=== PATIENT | male | born 1975 | race Caucasian/White ===

== ENCOUNTER 2020-10-01 13:14 | Emergency (ER) | payer OTHER, SELFPAY ==
[2020-10-01 13:22] VITALS: BP 116/70; PULSE 91; RESP 20; TEMP 37; O2SAT 98
--- NOTE | 2020-10-01 13:24 | ED.SKABFB ---
HPI - Skin/Abscess/Foreign Bdy General Chief complaint: Skin/Abscess/Foreign Body Stated complaint: Painful knot on left harm, swelling, redness Time Seen by Provider: 10/01/20 13:24 Source: patient and RN notes reviewed History of Present Illness HPI narrative: Patient is a 45-year-old male who presents the urgent care with complaints of a raised red and painful knot to the left forearm. Patient states has been there for approximately 1 week after he was outside working in the yard. Patient states he may have gotten bitten by something . Reports of some intermittent fevers but denies any nausea, vomiting or drainage from the area. Patient has not taken anything [id number] for his pain or for cleansing of the area. No other acute complaints. No acute distress noted. Patient aware of the plan of care. Some parts of this dictation were generated by voice recognition software and may contain typographical and/or grammatical inaccuracies. Related Data Allergies Allergy/AdvReac Type Severity Reaction Status Date / Time No Known Allergies Allergy Verified 10/01/20 13:33 Review of Systems Review of Systems: Narrative: CONSTITUTIONAL: Denies fever, chills, or sweats. EYES: Denies visual changes, redness, or discharge. ENT: Denies rhinorrhea, congestion, sore throat, or otalgia. CARDIOVASCULAR: Denies chest pain, palpitations, or edema. RESPIRATORY: Denies cough or dyspnea. GASTROINTESTINAL: Denies abdominal pain, nausea, vomiting, or diarrhea. GENITOURINARY: Denies dysuria or hematuria. SKIN: Reports of a painful red knot to the left forearm MUSCULOSKELETAL: Denies back pain, joint pain, or myalgia. NEUROLOGIC: Denies headache, numbness, or weakness. All other systems reviewed are negative, except as documented in HPI. [facility] Past Medical History Medical History (Updated 10/01/20 @ 13:44 by CARLOS Handley) Anxiety and depression Asthmatic bronchitis COPD (chronic obstructive pulmonary disease) Diabetes Fracture of left foot Fracture of right foot Hyperlipemia Hypertension Myocardial infarction Social History Social History (Updated 04/21/19 @ 14:33 by Tati Calderon NP) Smoking packs per day: 2 Smoking cigarettes per day: 40.0 Years smoked: 22 Smoking pack-years: 44.00 Smoking status: Current every day smoker Gender identity (if verbalized by the patient): Male Comments At the time of my signature, I reviewed and agree with the nursing past medical, surgical, social, and family history. There is no relevant family history pertinent to the patient complaint. Exam Narrative: Exam Narrative: GENERAL: This is a well-nourished, well-developed patient, in no apparent distress. HEAD: normocephalic, atraumatic. EYES: PERRL. Sclera clear/white. Vision is grossly intact. EARS: External ears normal NOSE: External nose normal with no obvious nasal discharge, nares without redness, no rhinorrhea. THROAT: Mucous membranes moist NECK: Neck supple CARDIOVASCULAR: Regular rate and rhythm without murmurs, gallops, or rubs. RESPIRATORY: Clear to auscultation. Breath sounds equal bilaterally. No wheezes, rales, or rhonchi. SKIN: 2 x 2 centimeter raised erythemic tender folliculitis noted to the left forearm with pinpoint center, without drainage. NEURO: awake, alert, and oriented to person, place and time. There were no obvious focal neurologic abnormalities. EXTREMITIES: No clubbing, cyanosis, or edema. Course Vital Signs Vital signs: Vital Signs Temperature 98.6 F 10/01/20 13:22 Pulse Rate 91 10/01/20 13:22 Respiratory Rate 20 10/01/20 13:22 Blood Pressure 116/70 10/01/20 13:22 Pulse Oximetry 98 10/01/20 13:22 Temperature 98.6 F 10/01/20 13:22 Pulse Rate 91 10/01/20 13:22 Respiratory Rate 20 10/01/20 13:22 Blood Pressure 116/70 10/01/20 13:22 Pulse Oximetry 98 10/01/20 13:22 Reviewed MDM - Skin/Abscess/Foreign Bdy MDM Narrative Medical decision making n
== END 2020-10-01 13:58 | disposition home or self-care (01) ==
PROVIDERS: Emergency Provider Nurse Practitioner Family
DX: L73.9 Follicular disorder, unspecified (principal); F17.210 Nicotine dependence, cigarettes, uncomplicated; J44.9 Chronic obstructive pulmonary disease, unspecified; E11.9 Type 2 diabetes mellitus without complications; E78.5 Hyperlipidemia, unspecified; I10 Essential (primary) hypertension; I25.2 Old myocardial infarction
CPT/HCPCS: 99213; G0463

== ENCOUNTER 2021-03-11 14:01 | Emergency (ER) | payer OTHER, SELFPAY ==
[2021-03-11 14:06] VITALS: BP 114/61; PULSE 100; RESP 16; TEMP 37; O2SAT 97
[2021-03-11 14:22] VITALS: BP 114/61; PULSE 100; RESP 16; TEMP 37; O2SAT 97
--- NOTE | 2021-03-11 14:27 | ED.URI ---
HPI - URI/Sore Throat General Chief Complaint: Upper Respiratory Infection Stated Complaint: Cough/Fever/ No Taste Time Seen by Provider: 03/11/21 14:28 Source: patient and RN notes reviewed Mode of arrival: ambulatory Limitations: no limitations History of Present Illness MD elicited complaint: cough Related Data Home Medications Medication Instructions Recorded Confirmed amlodipine 5 mg PO DAILY 03/11/21 03/11/21 insulin glargine [Lantus U-100 50 unit SUBCUT BID 03/11/21 03/11/21 Insulin] lisinopril 10 mg PO DAILY 03/11/21 03/11/21 metformin 500 mg PO BID 03/11/21 03/11/21 simvastatin 20 mg PO DAILY 03/11/21 03/11/21 Allergies Allergy/AdvReac Type Severity Reaction Status Date / Time No Known Allergies Allergy Verified 03/11/21 14:20 Review of Systems Review of Systems: CONSTITUTIONAL: Denies malaise, chills, sweats, or fever. EYES: Denies visual changes, redness, or discharge. ENT: Reports rhinorrhea, congestion, sinus pain, otalgia and sore throat. CARDIOVASCULAR: Denies chest pain, palpitations, or edema. RESPIRATORY: Reports cough. Denies dyspnea. GASTROINTESTINAL: Denies abdominal pain, nausea, vomiting, diarrhea SKIN: Denies rash or itching. MUSCULOSKELETAL: Denies myalgia. NEUROLOGIC: Denies headache. All systems reviewed & are unremarkable except as noted in HPI and below PMFSH Past Medical History Medical History (Updated 10/02/20 @ 00:00 by Lauren Torres) Anxiety and depression Asthmatic bronchitis COPD (chronic obstructive pulmonary disease) Diabetes Fracture of left foot Fracture of right foot Hyperlipemia Hypertension Myocardial infarction Social History Social History (Updated 04/21/19 @ 14:33 by Tati Calderon NP) Smoking packs per day: 2 Smoking cigarettes per day: 40.0 Years smoked: 22 Smoking pack-years: 44.00 Smoking status: Current every day smoker Gender identity (if verbalized by the patient): Male Comments At time of signature, agree with nursing past medical, surgical, social and family history. There is no relevant family history pertinent to the presenting complaint Exam Narrative: GENERAL: Well-appearing, well-nourished, and in no acute distress. HEAD: Normocephalic EYES: PERRLA, conjunctivae clear ENT: Nares clear, turbinates edematous and erythematous, clear discharge. Mucous membranes moist. TM pearly woods with dull light reflex bilaterally; no tragal tenderness. Oropharynx erythematous without lesions. Tonsils enlarged and without exudate, no drooling, no hoarseness, no trismus, uvula midline. NECK: Supple. No lymphadenopathy CHEST: Clear to auscultation, breath sounds equal. No wheezing, rhonchi, rales, or stridor. No respiratory distress, speaks in full sentences. HEART: Regular rate and rhythm. No murmur heard. SKIN: Warm, dry, no rash. NEURO: Alert and oriented x3. PSYCH: Normal mood and affect Course Course Emergency Course: Patient is aware of diagnosis, understands and agrees to treatment plan. Anticipatory guidance given. Patient agrees to follow-up as directed and is aware of reasons to seek care at the emergency department. Portions of this record may have been created with voice recognition software Vital Signs Vital signs: Vital Signs Temperature 98.6 F 03/11/21 14:06 Pulse Rate 100 03/11/21 14:06 Respiratory Rate 16 03/11/21 14:06 Blood Pressure 114/61 03/11/21 14:06 Pulse Oximetry 97 03/11/21 14:06 Temperature 98.6 F 03/11/21 14:22 Pulse Rate 100 03/11/21 14:22 Respiratory Rate 16 03/11/21 14:22 Blood Pressure 114/61 03/11/21 14:22 Pulse Oximetry 97 03/11/21 14:22 Reviewed. MDM - URI/Sore Throat MDM Narrative Medical decision making narrative: Differential diagnosis considered: Estes virus, strep pharyngitis, allergic rhinitis, upper respiratory tract infection, sinusitis, rhinosinusitis, nasopharyngitis. viral pharyngitis, otitis media, otitis externa, pneumonia, bronchitis, v
--- NOTE | 2021-03-11 14:38 | ED.URI ---
HPI - URI/Sore Throat General Chief Complaint: Upper Respiratory Infection Stated Complaint: Cough/Fever/ No Taste Time Seen by Provider: 03/11/21 14:28 Source: patient and RN notes reviewed Mode of arrival: ambulatory Limitations: no limitations History of Present Illness HPI Narrative: 45-year-old male presents with concern for 1 week history cough, fever, body aches, chills, change in taste, sore throat. Reports history of COPD, heavy smoker, 2 to 3 packs/day. Has not been vaccinated for Covid. He denies any known sick contacts. Reports he has been taking [id number] medication without relief. MD elicited complaint: cough Related Data Home Medications Medication Instructions Recorded Confirmed amlodipine 5 mg PO DAILY 03/11/21 03/11/21 insulin glargine [Lantus U-100 50 unit SUBCUT BID 03/11/21 03/11/21 Insulin] lisinopril 10 mg PO DAILY 03/11/21 03/11/21 metformin 500 mg PO BID 03/11/21 03/11/21 simvastatin 20 mg PO DAILY 03/11/21 03/11/21 Allergies Allergy/AdvReac Type Severity Reaction Status Date / Time No Known Allergies Allergy Verified 03/11/21 14:20 Review of Systems Review of Systems: CONSTITUTIONAL: Reports malaise, fever, fatigue. Denies chills, sweats EYES: Denies visual changes, redness, or discharge. ENT: Reports rhinorrhea, congestion, and sore throat. Denies sinus pain, otalgia CARDIOVASCULAR: Denies chest pain, palpitations, or edema. RESPIRATORY: Reports cough, chest congestion. Denies dyspnea. GASTROINTESTINAL: Denies abdominal pain, nausea, vomiting, diarrhea SKIN: Denies rash or itching. MUSCULOSKELETAL: Reports myalgia. NEUROLOGIC: Reports headache. [facility] Past Medical History Medical History (Updated 03/11/21 @ 14:44 by Elana Hu NP) Anxiety and depression Asthmatic bronchitis COPD (chronic obstructive pulmonary disease) Diabetes Fracture of left foot Fracture of right foot Hyperlipemia Hypertension Myocardial infarction Social History Social History (Updated 04/21/19 @ 14:33 by Tati Calderon NP) Smoking packs per day: 2 Smoking cigarettes per day: 40.0 Years smoked: 22 Smoking pack-years: 44.00 Smoking status: Current every day smoker Gender identity (if verbalized by the patient): Male Exam Narrative: GENERAL: Well-appearing, well-nourished, and in no acute distress. HEAD: Normocephalic EYES: PERRLA, conjunctivae clear ENT: Nares clear, clear discharge. Mucous membranes moist. Right TM pearly woods with dull light reflex left TM erythematous and bulging; no tragal tenderness. Oropharynx mildly erythematous without lesions. Tonsils enlarged and without exudate, no drooling, no hoarseness, no trismus, uvula midline. NECK: Supple. No lymphadenopathy CHEST: Scattered wheeze, otherwise breath sounds equal. No rhonchi, rales, or stridor. No respiratory distress, speaks in full sentences. HEART: Regular rate and rhythm. No murmur heard. SKIN: Warm, dry, no rash. NEURO: Alert and oriented x3. PSYCH: Normal mood and affect Course Vital Signs Vital signs: Vital Signs Temperature 98.6 F 03/11/21 14:06 Pulse Rate 100 03/11/21 14:06 Respiratory Rate 16 03/11/21 14:06 Blood Pressure 114/61 03/11/21 14:06 Pulse Oximetry 97 03/11/21 14:06 Temperature 98.6 F 03/11/21 14:22 Pulse Rate 100 03/11/21 14:22 Respiratory Rate 16 03/11/21 14:22 Blood Pressure 114/61 03/11/21 14:22 Pulse Oximetry 97 03/11/21 14:22 MDM - URI/Sore Throat MDM Narrative Medical decision making narrative: Differential diagnosis considered: Estes virus, strep pharyngitis, allergic rhinitis, upper respiratory tract infection, sinusitis, rhinosinusitis, nasopharyngitis. viral pharyngitis, otitis media, otitis externa, pneumonia, bronchitis, viral cough syndrome, viral syndrome, and influenza. Exam findings show no acute concerns or changes; patient is non-toxic appearing and is in no distress. Patient is appropriate for outpatient treatment
[2021-03-12 19:57] LABS: SARS-CoV-2 RNA PCR Negative
== END 2021-03-11 14:52 | disposition home or self-care (01) ==
PROVIDERS: Emergency Provider Nurse Practitioner
DX: J06.9 Acute upper respiratory infection, unspecified (principal); H66.002 Acute suppurative otitis media without spontaneous rupture of ear drum, left ear; Z20.822 Contact with and (suspected) exposure to COVID-19; J44.9 Chronic obstructive pulmonary disease, unspecified; E11.9 Type 2 diabetes mellitus without complications; E78.5 Hyperlipidemia, unspecified; I10 Essential (primary) hypertension; I25.2 Old myocardial infarction; F17.210 Nicotine dependence, cigarettes, uncomplicated
CPT/HCPCS: 87081; 87426; 87804; 87880; 99213; C9803; G0463; U0003; U0005

== ENCOUNTER 2023-02-03 10:10 | Emergency (ER) | payer OTHER, SELFPAY ==
--- NOTE | ~2023-02-03 | XR_ITS ---
EXAMINATION: XR chest 2V 02/03/2023 10:47 INDICATION: Cough and congestion PROCEDURE: 2 view chest COMPARISON: 03/29/2018 FINDINGS: The lungs are clear. The cardiomediastinal silhouette is within normal limits. There are no pleural effusions. There is no pneumothorax suspected. IMPRESSION: 1: NO ACUTE CARDIOPULMONARY DISEASE. Reviewed, dictated and finalized at location A.
[2023-02-03 10:14] VITALS: BP 129/76; PULSE 109; RESP 20; TEMP 36.4; O2SAT 98
--- NOTE | 2023-02-03 10:17 | ED.URI ---
HPI - URI/Sore Throat General Chief Complaint: Upper Respiratory Infection Stated Complaint: cough,chest pain Time Seen by Provider: 02/03/23 10:19 Source: patient, RN notes reviewed and old records reviewed Mode of arrival: ambulatory Limitations: no limitations History of Present Illness HPI Narrative: 47 year old male who presents [facility] with complaints of 4 day duration of increased cough, headache body aches, nasal drainage, sore throat with fever up to 101F yesterday. Patient reports that he did home COVID test yesterday which was negative. He states that his cough is productive and he does have some chest discomfort with the cough, denies any diaphoresis, nausea and vomiting or any any pain to his left arm or jaw. Patient reports that he has been taking cough syrup DM, Tylenol and Ibuprofen. Patient admits to long history of tobacco abuse nd history of COPD, does not have an inhaler at this time MD elicited complaint: fever, cough, sore throat, rhinorrhea, nasal congestion and other (body aches) Pertinent past history: COPD, asthma, seasonal allergies and other (tobacco abuse) Onset (ago): day(s) (4) Pain scale (0-10): 8 Able to tolerate fluids by mouth: Yes Treatments prior to arrival: acetaminophen, ibuprofen and other (cough medication DM) Related Data Home Medications Medication Instructions Recorded Confirmed amlodipine 5 mg tablet 5 mg PO DAILY 03/11/21 03/11/21 insulin glargine 100 unit/mL 50 unit subcut BID 03/11/21 03/11/21 subcutaneous solution (Lantus U-100 Insulin) lisinopril 10 mg tablet 10 mg PO DAILY 03/11/21 03/11/21 metformin 500 mg tablet 500 mg PO BID 03/11/21 03/11/21 simvastatin 20 mg tablet 20 mg PO DAILY 03/11/21 03/11/21 atorvastatin 40 mg tablet mg 02/03/23 sitagliptin phosphate 100 mg mg 02/03/23 tablet (Januvia) Allergies Allergy/AdvReac Type Severity Reaction Status Date / Time No Known Allergies Allergy Verified 03/11/21 14:20 Review of Systems Review of Systems: CONSTITUTIONAL: Reports fever, chills, or sweats. EYES: Denies visual changes, redness, or discharge. ENT: Reports rhinorrhea, congestion, sore throat, no otalgia. CARDIOVASCULAR: Reports chest pain with cough,no palpitations, or edema. RESPIRATORY ;Reports productive cough and some dyspnea. GASTROINTESTINAL: Denies abdominal pain, nausea, vomiting, or diarrhea. GENITOURINARY: Denies dysuria or hematuria. SKIN: Denies rash or itching. MUSCULOSKELETAL: Denies back pain, joint pain, or myalgia. NEUROLOGIC: Reports headache, no numbness, or weakness. PSYCHIATRIC: Reports history of anxiety or depression. All systems reviewed & are unremarkable except as noted in HPI and below PMFSH Past Medical History Medical History (Updated 02/03/23 @ 11:05 by Tati Calderon NP) Anxiety and depression Asthmatic bronchitis COPD (chronic obstructive pulmonary disease) Diabetes Fracture of left foot Fracture of right foot Hyperlipemia Hypertension Myocardial infarction Social History Social History (Updated 02/03/23 @ 10:56 by Tati Calderon NP) Smoking packs per day: 2 Smoking cigarettes per day: 40.0 Years smoked: 22 Smoking pack-years: 44.00 Smoking status: Current every day smoker Additional smoking assessment comments: states smoking one pack per day Alcohol intake: current Alcohol use details: occasional Substance use: current Substance use type: marijuana Last use: occasional use Living arrangements: with family Gender identity (if verbalized by the patient): Male Comments At time of signature, agree with nursing past medical, surgical, social and family history. There is no relevant family history pertinent to the presenting complaint Exam Narrative: GENERAL: chronic ill -appearing, well-nourished, and in no acute distress. HEAD: Normocephalic, atraumatic. EYES: PERRLA and EOMI. ENT: Nares clear, clear rhinorrhea no epistaxis. Mucous membranes moist.TM's nor
[2023-02-03] MEDS: IPRATROPIUM BR 0.02% INH SOLN 0.5 MG/2.5 ML VIAL INHALATION (10:55)
[2023-02-03] MEDS: ALBUTEROL SULFATE NEB 2.5 MG/3 ML INH INHALATION (10:55)
[2023-02-03 11:28] VITALS: PULSE 114; RESP 24; O2SAT 99
== END 2023-02-03 11:20 | disposition home or self-care (01) ==
PROVIDERS: Emergency Provider Registered Nurse; PCP Nurse Practitioner Family
DX: J44.1 Chronic obstructive pulmonary disease with (acute) exacerbation (principal); F17.210 Nicotine dependence, cigarettes, uncomplicated; E11.9 Type 2 diabetes mellitus without complications; E78.5 Hyperlipidemia, unspecified; I10 Essential (primary) hypertension; I25.2 Old myocardial infarction; Z79.84 Long term (current) use of oral hypoglycemic drugs; Z79.4 Long term (current) use of insulin; F12.90 Cannabis use, unspecified, uncomplicated
CPT/HCPCS: 71046; 87081; 87804; 87880; 94640; 99213; G0463

== ENCOUNTER 2024-11-29 12:20 | Emergency (ER) | payer BC, SELFPAY ==
--- OUTSIDE RECORDS SUMMARY | 2024-11-29 12:22 | XMS_ITS | Clinical Summary ---
Author Organization [facility] Address [address] [place] [address] Phone Care Team Providers Care Wet Pour Supervisor Name Role Phone Arun Guallpa APRN, PROCESS CONTROLS TECHNICIAN Primary Care Pr ovider Allergies No known active allergies Medications fluticasone-salmet bri (ADVAIR) 250-50 MCG/ACT AEROSOL POWDER, BREATH ACTIVATED take 1 Puff by inhalation in the morning and at bedtime. 180 Each 12/11/19 Active Blood Glucose Monitoring Suppl DeviceIndications: Type 2 diabetes mellitus with hyperglycemia, without long-term current use of insulin (HCC) Diagnosis: Diabetes type 2 Blood testing frequency: 2-3 times a day E11.65. 1 Each 12/11/19 Active Glucose Blood StripIndications:T ype 2 diabetes mellitus with hyperglycemia, without long-term current use of insulin (HCC) Use to check blood glucose 2-3 times a day as directed. E11.65. 100 Strip 12/11/19 Active Lancets MiscIndications:Ty pe 2 diabetes mellitus with hyperglycemia, without long-term current use of insulin (HCC) Use to check blood glucose 2-3 times a day as directed. E11.65. 100 Lancet . 12/11/19 Active Alcohol Swabs (Alcohol Prep) 70 % PadsIndications:Ty pe 2 diabetes mellitus with hyperglycemia, without long-term current use of insulin (HCC) Use to check blood glucose 2-3 times a day as directed. E11.65. 200 Each 12/11/19 24 Active Insulin Pen Needle (BD ULTRA-FINE PEN NEEDLES) 29G X 12.7MM MiscIndications:Ty pe 2 diabetes mellitus with hyperglycemia, with long-term current use of insulin ([facility]) Use as directed with long acting insulin. 100 Each 5 12/18/19 24 Active dicyclomine (BENTYL) 20 MG Tablet Take 1 Tablet by mouth every 6 hours. 30 Tablet 04/28/19 25 Active diclofenac (VOLTAREN) 75 MG Tablet Delayed ResponseIndication s:Plantar fasciitis, left Take 1 Tablet by mouth 2 times daily. 60 Tablet 2 05/13/19 25 Active albuterol (ProAir HFA) 108 (90 Base) MCG/ACT Aerosol SolutionIndication s:COPD exacerbation ([facility]) take 2 Puffs by inhalation every 4 hours as needed for Wheezing. 8.5 g 5 05/13/19 25 Active Jardiance 25 MG TabletIndications: Type 2 diabetes mellitus with hyperglycemia ([facility]) TAKE 1 TABLET BY MOUTH EVERY DAY 30 Tablet 5 05/19/19 25 Active ARIPiprazole (ABILIFY) 15 MG Tablet TAKE 1 TABLET BY MOUTH EVERY DAY 90 Tablet 3 06/07/19 25 Active atorvastatin (LIPITOR) 40 MG Tablet TAKE 1 TABLET BY MOUTH EVERY DAY 90 Tablet 3 07/08/19 25 Active amLODIPine (NORVASC) 5 MG Tablet Take 1 Tablet by mouth daily. 90 Tablet 3 07/11/19 25 Active pregabalin (LYRICA) 50 MG CapsuleIndications :Peripheral polyneuropathy Take 1 Capsule by mouth 3 times daily. 90 Capsule 5 07/11/19 25 Active insulin glargine (LANTUS, BASAGLAR) 100 UNIT/ML Solution Pen-injectorIndica tions:Type 2 diabetes mellitus with hyperglycemia, with long-term current use of insulin ([facility]) 36 Units by Subcutaneous route nightly. 9 mL 3 07/11/19 25 Active SITagliptin (JANUVIA) 100 MG TabletIndications: Type 2 diabetes mellitus with hyperglycemia, with long-term current use of insulin ([facility]) Take 1 Tablet by mouth daily. 90 Tablet 3 07/11/19 25 Active Active Problems Problem Noted Date Diagnosed Date Other cirrhosis of liver 12/18/2023 OCD (obsessive compulsive disorder) 12/11/2023 Bipolar disorder 12/11/2023 Hypertension 06/30/2018 Dyslipidemia 06/30/2018 Lactic acidosis 06/29/2018 Diabetes mellitus 06/29/2018 COPD (chronic obstructive pulmonary disease) Chest pain on breathing 06/29/2018 Asthma Immunizations Immunization Administration Dates Next Due Influenza, Injectable, Quadrivalent 09/2022,05/19/2022,05/01/2019,01/24,02/15/2016,02/15/2015 Influenza,Split Virus,Trivalent,Injectable,PF 01/08/2024 Pneumococcal Vaccine Adult - 23 Valent 6 Pneumococcal conjugate PCV20 , polysaccharide [id number] conjugate, adjuvant, PF 04/07/2024 TDAP Vaccine 07/31/2016 Family History Medical History Relation Name Comments Hypertension Father Diabetes Maternal Grandfather Hypertension Mother Relation Name Status Comments Father Maternal Grandfather Mother Alive Social History Tobacco Use Types Packs/Day Years Used Date Smoking Tobacco: Every Day Cigarettes Smokeless Tobacco: Never Tobacco Cessation:Ready to Q uit: No; Counseling Given: Yes Alcohol Use Standard Drinks/Week Comments Yes 0 (1 standard drink = 0.6 oz pur e alcohol) OCCASIONALLY [employer] Answer Date Recorded In the past 12 months has [employer], oil, or water [employer] threatened to shut off services in your home? No 12/11/2023 Social Connection and Isolation Panel Answer Date Recorded In a typical week, how many times do you talk on the phone with family, friends, or neighbors? Never 12/11/2023 How often do you get togethe r with friends or relatives? Once a week 12/11/2023 How often do you attend roman catholic or orthodox serv ices? Never 12/11/2023 Do you belong to any clubs o r organizations such as roman catholic groups, unions, fraternal or athletic groups, or school groups? No 12/11/2023 How often do you attend meet ings of the clubs or organizations you belong to? Patient declined 12/11/2023 Are you , , di vorced, , never , or living with a partner? Never 12/11/2023 AUDIT-C Answer Date Recorded Q1: How often do you have a drink containing alcohol? Never 12/11/2023 Q2: How many drinks containi ng alcohol do you have on a typical day when you are drinking? Patient does not drink Q3: How often do you have si x or more drinks on one occasion? Never 12/11/2023 Overall Financial Resource Strain (CARDIA) Answe r Date Recorded How hard is it for you to pa y for the very basics like food, housing, medical care, and heating? Hard 12/11/2023 PHQ-2 Answer Date Recorded Total Score - Questions 1-9 0 04/16 [facility]ational Stress Questionnaire Answer Date Recorded Do you feel stress - tense, restless, nervous, or anxious, or unable to sleep at night because your mind is troubled all the time - these days? Very much 12/11/2023 Exercise Vital Sign Answer Date Recorde d On average, how many days pe r week do you engage in moderate to strenuous exercise (like a brisk walk)? 7 days 12/11/2023 On average, how many minutes do you engage in exercise at this level? 30 min 12/11/2023 Hunger Vital Sign Answer Date Recorded Within the past 12 months, y ou worried that your food would run out before you got the money to buy more. Sometimes true Within the past 12 months, t he food you bought just didn't last and you didn't have money to get more. Sometimes true PRAPARE - Transportation Answer Date Re corded In the past 12 months, has l ack of transportation kept you from medical appointments or from getting medications? Yes 11/15 In the past 12 months, has l ack of transportation kept you from meetings, work, or from getting things needed for daily living? Yes 12/11/2023 Housing Stability Vital Sign Answer Sameer e Recorded In the last 12 months, was t here a time when you were not able to pay the mortgage or rent on time? No 12/11/2023 In the past 12 months, how m any times have you moved where you were living? 0 12/11/2023 At any time in the past 12 m [facility], were you homeless or living in a group home (including now)? No 12/11/2023 Sex and Gender Information Value Date Recorded Sex Assigned at Male 05/09/2024 12:20 AM INDUSTRIAL RELATIONS OFFICER Legal Sex Male 9:37 PM CDT Gender Identity Male 05/09/2024 12:20 AM INDUSTRIAL RELATIONS OFFICER Sexual Orientation Not on file Last Filed Vital Signs Vital Sign Reading Time Taken Comments Blood Pressure 122/74 07/10/2024 4:14 PM CDT Pulse 107 07/10/2024 4:14 PM CDT Temperature 36.2 C (97.2 F) 07/10/2024 4:14 PM CDT Respiratory Rate 16 07/10/2024 4:14 PM CDT Oxygen Saturation 97% 07/10/2024 4:14 PM CDT Inhaled Oxygen Concentration - - Weight 108.9 kg (240 lb 1.6 oz) 07/10/2024 4:14 PM CDT Height 182.9 cm (6') 07/10/2024 4:14 PM CDT Body Mass Index 32.56 07/10/2024 4:14 PM CDT Plan of Treatment Health Maintenance Due Date Last Done Comments Diabetes: Eye Exam 1973 Hepatitis B Immunization (1 of 3 - 19+ 3-dose series) 1992 Cologuard 2018 Colonoscopy 2018 Colorectal Cancer Screening 2018 Immunochemical Fecal Occult Blood 2018 Zoster Immunization (1 of 2) 09/26/2023 SARS-COV-2 Immunization ( season) 2023 Influenza Immunization (#1) 12/15/202412/16, 02/19/2023, 05/19/2022, Additional history exists Diabetes: Foot Exam 01/07/2025 01/08/2024, Diabetes: Hemoglobin A1c 01/10/2025 025, 04/07/2024, 12/12/2023, Additional history exists Diabetes: Nephropathy Screening 05/08/2025 05/08/2024, 04/28/2024, 12/12/2023, Additional history exists Td Immunization Every 10 Years (Adults With 1 Tdap) 07/31/2026 07/31/2016 Respiratory Syncytial Virus (RSV) Immunization (Adult) (1 - 1-dose 75+ series) 2048 DTaP/Tdap/Td Immunization Discontinued 07/31/2016 TdaP Immunization Discontinued 07/31/2016 Hepatitis C Virus (HCV) Screening Completed 12/12/2023 Pneumococcal Immunization (50+ years) Completed 04/07/2024, 08/12/2015 Pneumococcal Immunization Combined Discontinued 04/07/2024, 08/12/2015 Human Papillomavirus (HPV) Immunization Aged Out No longer eligible based on patient's age to complete this topic Meningococcal Immunization (ACWY) Aged Out No longer eligible based on patient's age to complete this topic Rotavirus Immunization Aged Out No lo nger eligible based on patient's age to complete this topic Procedures Procedure Name Priority Date/Time Associated Diagnosis Comments POCT GLYCOSYLATED HEMOGLOBIN Routine 07/10/2024 4:36 PM CDT Type 2 diabetes mellitus with hyperglycemia, with long-term current use of insulin (HCC) CMP (COMPREHENSIVE METABOLIC PANEL) STAT 05/08/2024 11:36 PM INDUSTRIAL RELATIONS OFFICER HEPATITIS C ANTIBODY Routine 12/12/2023 1:40 PM CDT Encounter for hepatitis C screening test for low risk patient from Last 3 Months or Most Recently Relevant to Health Maintenance Results * (ABNORMAL) POCT GLYCOSYLATED HEMOGLOBIN (07/10/2024 4:36 PM CDT) HGB-A1C 8.8(A) 4 - 6 % Blood 07/10/2024 4:36 PM CDT Arun Guallpa APRN, PROCESS CONTROLS TECHNICIAN POINT OF CARE TE STING (MANUAL) Final Result * (ABNORMAL) CMP (COMPREHENSIVE METABOLIC PANEL) (05/08/2024 11:36 PM INDUSTRIAL RELATIONS OFFICER) SODIUM 135(L) 136 - 145 mmol/L 05/09/2024 12:10 AM INDUSTRIAL RELATIONS OFFICER [facility] POTASSIUM 4.0 3.5 - 5.1 mmol/L 05/09/2024 12:10 AM INDUSTRIAL RELATIONS OFFICER [facility] CHLORIDE 107 98 - 107 mmol/L 05/09/2024 12:10 AM INDUSTRIAL RELATIONS OFFICER [facility] CO2, VENOUS 22 22 - 30 mmol/L 05/09/2024 12:10 AM INDUSTRIAL RELATIONS OFFICER [facility] ANION GAP 10.0 <18.0 mmol/L 05/09/2024 12:10 AM [facility] GLUCOSE 172(H) 70 - 99 mg/dL 05/09/2024 12:10 AM [facility] BUN 8 8 - 26 mg/dL 05/09/2024 12:10 AM [facility] CREATININE, BLOOD 0.59(L) 0.70 - 1.30 mg/dL 05/09/2024 12:10 AM [facility] BUN/CREATININE RATIO 14 12 - 20 ratio 05/09/2024 12:10 AM [facility] TOTAL PROTEIN 7.5 6.0 - 8.0 g/dL 05/09/2024 12:10 AM [facility] ALBUMIN 3.5 3.5 - 5.0 g/dL 05/09/2024 12:10 AM [facility] A/G RATIO 0.9(L) 1.0 - 2.2 05/09/2024 12:10 AM [facility] CALCIUM 8.6(L) 8.7 - 10.5 mg/dL 05/09/2024 12:10 AM [facility] T BILI 0.4 0.2 - 1.2 mg/dL 05/09/2024 12:10 AM [facility] SGOT (AST) 32 6 - 42 U/L 05/09/2024 12:10 AM [facility] SGPT (ALT) 34 6 - 55 U/L 05/09/2024 12:10 AM [facility] ALKALINE PHOSPHATASE 181(H) 40 - 150 U/L 05/09/2024 12:10 AM [facility] GFR, ESTIMATED >60 >=60 05/09/2024 12:10 AM [facility] Comment: Creatinine Clearance is the preferred criteria for selecting drug dose adjustments in renally impaired patients. The GFR is provided as additional pertinent clinical information. GFR is reported in mL/min/1.73 sq m. Calculation based on the Chronic Kidney Disease Epidemiology Collaboration (CKD- EPI) equation refit without adjustment for race. GFR, EST. >60 >=60 025 12:10 AM INDUSTRIAL RELATIONS OFFICER [facility] GFR, EST. NONAFRICAN >60 >=60 05/09/2024 12:10 AM INDUSTRIAL RELATIONS OFFICER [facility] Blood Venipuncture / Unknown 05/08/2024 11:36 PM INDUSTRIAL RELATIONS OFFICER 05/08/2024 11:49 PM INDUSTRIAL RELATIONS OFFICER us Link Tejada MD CHEMISTRY ORDERABLES Final Result [facility] [address] [place] [address] * HEPATITIS C ANTIBODY (12/12/2023 1:40 PM CDT) hepatitis C antibody 0.11 <1 S/CO 12/12/2023 11:14 PM CDT [facility] Comment: Signal/Cutoff ratio < 0.79 is Nondetected Signal/Cutoff ratio 0.80-0.99 is Grayzone Signal/Cutoff ratio > 0.99 is Detected Supplemental assays are recommended if signal/cutoff ratio is >/=1.00. Signal/cutoff ratio result >/= 5.00 is 97% predictive of positivity for recombinant immunoblot assay (RIBA) and will be reported to the [place] Department of Public Health as required. Blood Venipuncture / Unknown 12/12/2023 1:40 PM CDT 12/12/2023 1:44 PM CDT us Arun Guallpa CHERRY DIPPER, PROCESS CONTROLS TECHNICIAN CHEMISTRY ORDERA BLES Final Result [facility] [address] [place] [address], [place] from Last 3 Months or Most Recently Relevant to Health Maintenance Insurance MEDICAID [place] [facility] Advance Directives * Full Code (Latest Code Status on File) Date Activated Date Inactivated Comments 06/29/2018 7:23 PM 07/01/2018 3:18 PM CPR-Full Tr eatment: FULL ARREST: Attempt Resuscitation/CPR wit intubation and mechanical ventilation. PRE-ARREST: Use entire range of life support measures to stabilize the patient. Care Teams Wet Pour Supervisor Relationship Specialty Start Date End Date Arun Guallpa, CHERRY DIPPER, PROCESS CONTROLS TECHNICIAN [address] [place] [id number] PCP - General Advanced Practice Nurse 12/11/23
--- OUTSIDE RECORDS SUMMARY | 2024-11-29 12:22 | XMS_ITS | Clinical Summary ---
Author Organization [facility] Address [address] [place] [address] Care Team Providers Care Editing Clerk Name Role Phone Mandy Lucas MD Primary Care Provider [phone] Allergies No known active allergies Medications metFORMIN (GLUCOPHAGE) 500 mg tablet Take 1 tablet (500 mg total) by mouth 2 (two) times a day with meals 60 tablet 1 0 Active insulin lispro (HumaLOG) 100 unit/mL injection Inject 5 units three times daily with meals. Use as directed 9 Active lisinopriL (PRINIVIL,ZESTRIL) 10 mg tablet Take 1 tablet by mouth daily 6 Active simvastatin (ZOCOR) 20 mg tablet Take 20 mg by mouth nightly 0 Active fenofibrate (TRIGLIDE) 160 mg tablet Take 1 tablet by mouth daily 6 Active acetaminophen (TYLENOL) 325 mg tablet Take 2 tablets (650 mg total) by mouth every 6 (six) hours as needed for pain or headaches 30 tablet 0 Active famotidine (PEPCID) 20 mg tablet Take 1 tablet (20 mg total) by mouth 2 (two) times a day 60 tablet 11 0 Active nicotine (NICODERM CQ) [address] 1 patch on the skin daily 30 patch 0 Active insulin glargine (LANTUS,BASAGLAR) 100 unit/mL (3 mL) insulin pen Inject 15 Units under the skin nightly 1 pen 11 0 Active sulfamethoxazole-t rimethoprim (BACTRIM DS) 800-160 mg per tablet Take 1 tablet by mouth 2 (two) times a day 20 tablet 0 Active ibuprofen (ADVIL,MOTRIN) 800 mg tablet Take 1 tablet (800 mg total) by mouth every 6 (six) hours as needed for pain 40 tablet 1 0 Active ondansetron ODT (ZOFRAN-ODT) 4 mg disintegrating tablet Take 1 tablet (4 mg total) by mouth every 8 (eight) hours as needed for nausea or vomiting 20 tablet 2 Active dicyclomine (BENTYL) 20 mg tablet Take 1 tablet (20 mg total) by mouth every 8 (eight) hours as needed (Crampy abdominal pain) 20 tablet 2 Active HYDROcodone-acetam inophen (NORCO) 5-325 mg per tabletIndications: Pain Take 1 tablet by mouth every 6 (six) hours as needed for pain for up to 6 doses 6 tablet 3 Active Active Problems Problem Noted Date Diagnosed Date Abscess of buttock, right 10/24/2019 Medical History Medical History Date Comments COPD (chronic obstructive pulmonary disease) Emphysema lung Hypertension Diabetes mellitus (HCC) Asthma Social History Tobacco Use Types Packs/Day Years Used Date Smoking Tobacco: Every Day Cigarettes 2 10 Smokeless Tobacco: Never Tobacco Cessation:Ready to Q uit: Not Asked; Counseling Given: Not Answered Alcohol Use Standard Drinks/Week Comments Yes 0 (1 standard drink = 0.6 oz pur e alcohol) rarely PHQ-2 Answer Date Recorded PHQ-2 Total Score (If total score is 3 or more points, staff should administer the PHQ-9) 2 10/24/2019 Personal Safety Answer Date Recorded Have you ever been in or are you currently in a harmful physical or emotional relationship or is someone making you feel afraid or unsafe? Denies 01/08/2023 Sex and Gender Information Value Date Recorded Sex Assigned at Not on file Legal Sex Male 12:54 AM PLANT UTILITIES ENGINEER Gender Identity Not on file Sexual Orientation Not on file Obstetrics History Last Filed Vital Signs Vital Sign Reading Time Taken Comments Blood Pressure 131/80 01/08/2023 3:33 PM CDT Pulse 99 01/08/2023 3:33 PM CDT Temperature 36.7 C (98 F) 01/08/2023 3:33 PM CDT Respiratory Rate 20 01/08/2023 3:33 PM CDT Oxygen Saturation 100% 01/08/2023 3:33 PM CDT Inhaled Oxygen Concentration - - Weight 110.7 kg (244 lb) 01/08/2023 3:33 PM CDT Height 182.9 cm (6') 01/08/2023 3:33 PM CDT Body Mass Index 33.09 01/08/2023 3:33 PM CDT Plan of Treatment Health Maintenance Due Date Last Done Comments Colon Cancer Screening-Colonoscopy 1973 Hepatitis C Screening 1973 Prostate Cancer Screening-PSA 1973 Hepatitis B Screening 09/26/1991 Regular Well Visit/Exam 18-64 09/26/1991 Pneumococcal vaccine <65 (2 of 2 - PCV) 08/11/2016 08/12/2015 Depression Screening 10/22/2020 10/23/2019 Zoster Vaccine (1 of 2) 09/26/2023 Influenza Vaccine (#1) 2024 3, 05/19/2022, 05/01/2019, Additional history exists DTaP/Tdap/Td Vaccine (2 - Td or Tdap) 07/31/2026 07/31/2016 Insurance [employer] Advance Directives For more information, please contact: [phone] * Full Code (Latest Code Status on File) Date Activated Date Inactivated Comments 10/24/2019 3:12 AM 10/26/2019 7:37 PM Care Teams Editing Clerk Relationship Specialty Start Date End Date Mandy Lucas MD PCP - General Family Medicine 08/01/23
[2024-11-29 12:24] VITALS: BP 143/87; PULSE 103; RESP 16; TEMP 36.4; O2SAT 99
--- NOTE | 2024-11-29 12:33 | ED.EAR ---
HPI - Ear Problem General Chief complaint: Ear Stated complaint: Left Ear Pain Time Seen by Provider: 11/29/24 12:22 Source: patient Mode of arrival: ambulatory Limitations: no limitations History of Present Illness HPI Narrative: 49-year-old male presents to [facility] with complaints of left ear pain for the past 3-4 days. Patient denies drainage from his left ear. Patient denies recent swimming. Patient denies injury to his ear. Patient has not tried taking any [id number] medications for symptoms. Patient does report history of ear infections. Patient denies fever, body aches, chills, nausea, vomiting or diarrhea. MD Complaint: ear pain Location: left ear Duration: constant Severity: moderate Relieving factors: nothing Exacerbating factors: nothing Discharge from ear: Reports no Treatment prior to arrival: none Related Data Home Medications ?Medication ?Instructions ?Recorded ?Confirmed ?Last Taken ?Type amlodipine 5 mg tablet 5 mg PO DAILY 03/11/21 03/11/21 Unknown History insulin glargine 100 unit/mL 50 unit subcut BID 03/11/21 03/11/21 Unknown History subcutaneous solution (Lantus U-100 Insulin) lisinopril 10 mg tablet 10 mg PO DAILY 03/11/21 03/11/21 Unknown History metformin 500 mg tablet 500 mg PO BID 03/11/21 03/11/21 Unknown History simvastatin 20 mg tablet 20 mg PO DAILY 03/11/21 03/11/21 Unknown History atorvastatin 40 mg tablet mg 02/03/23 Unknown History sitagliptin 100 mg tablet mg 11/29/24 Unknown History Allergies Allergy/AdvReac Type Severity Reaction Status Date / Time No Known Allergies Allergy Verified 11/29/24 12:37 Review of Systems Constitutional: Constitutional: Denies chills, Denies fatigue, Denies fever(s) and Denies weakness ENT: Denies dizziness, Denies epistaxis, Denies nasal congestion and Denies sore throat Comments: Left ear pain Cardiovascular: Cardiovascular: Denies chest pain Respiratory: Respiratory: Denies cough, Denies dyspnea and Denies wheezing Gastrointestinal: Gastrointestinal: Denies diarrhea, Denies nausea and Denies vomiting Musculoskeletal: Musculoskeletal: Denies arthralgias and Denies joint swelling Integumentary/Breasts: Skin/Breast: Denies rash Neurologic: Denies dizziness, Denies syncope and Denies headache(s) [facility] Past Medical History Medical History Fracture of left foot Fracture of right foot Myocardial infarction Hypertension Anxiety and depression Asthmatic bronchitis Hyperlipemia COPD (chronic obstructive pulmonary disease) Diabetes Social History Social History Smoking packs per day: 2 Smoking cigarettes per day: 40.0 Years smoked: 22 Smoking pack-years: 44.00 Smoking status: Current every day smoker Additional smoking assessment comments: states smoking one pack per day Alcohol intake: current Alcohol use details: occasional Substance use: current Substance use type: marijuana Last use: occasional use Living arrangements: with family Gender identity (if verbalized by the patient): Male Comments At time of signature, I agree with nursing past medical, surgical, social and family history. There is no relevant family history pertinent to the presenting complaint. Exam Const: General: healthy appearing and no acute distress Nutritional Appearance: well nourished Orientation/consciousness: patient oriented x3 Limitations: no limitations HENMT: Head: normal to inspection Ears: Abnormal EAC present erythema on the left, edema on the left and EAC tenderness on the left; no foreign body and TM abnormal (Unable to visualize left TM due to swelling of left ear canal) Throat: posterior oropharynx normal Eyes: Conjunctivae: conjunctivae normal Neck: Neck: normal visual inspection Resp: Effort & Inspection: normal respiratory effort and not labored Auscultation: clear to auscultation bilaterally, no crackles, no rales, no rhonchi and no wheezes Cardio: Rate: regular rate Rhythm: regular rhythm Heart sounds: no murmurs Skin: General skin exam: normal color Rashes: no rashes Neuro: General: patient oriented x3 and moves all extremities Speech: normal speech Gait exam (Neuro): Normal gait present Extrem: General: normal to inspection Psych: Affect: normal affect Attitude: cooperative Course Course Level of Care: Express Care Visit Vital Signs Vital signs: Vital Signs Temperature 36.4 C 11/29/24 12:24 Pulse Rate 103 H 11/29/24 12:24 Respiratory Rate 16 11/29/24 12:24 Blood Pressure 143/87 H 11/29/24 12:24 Pulse Oximetry 99 11/29/24 12:24 Oxygen Delivery Room Air 11/29/24 12:24 Temperature 36.4 C 11/29/24 12:24 Pulse Rate 103 H 11/29/24 12:24 Respiratory Rate 16 11/29/24 12:24 Blood Pressure 143/87 H 11/29/24 12:24 Pulse Oximetry 99 11/29/24 12:24 Oxygen Delivery Room Air 11/29/24 12:24 Medical Decision Making MDM Narrative Medical decision making narrative: Due to unable to visualize TM, patient will be treated with both oral antibiotic antibiotic ear drops. No steroids will be given at this time as patient is diabetic. Educated patient alternate Motrin and Tylenol as needed for pain. Educated patient to proceed to the emergency room if symptoms worsen Differential Diagnosis Differential Diagnosis: Cerumen impaction, otitis media, acute viral illness Vital Signs Vital Signs: Vital Signs Temperature 36.4 C 11/29/24 12:24 Pulse Rate 103 H 11/29/24 12:24 Respiratory Rate 16 11/29/24 12:24 Blood Pressure 143/87 H 11/29/24 12:24 Pulse Oximetry 99 11/29/24 12:24 Oxygen Delivery Room Air 11/29/24 12:24 Temperature 36.4 C 11/29/24 12:24 Pulse Rate 103 H 11/29/24 12:24 Respiratory Rate 16 11/29/24 12:24 Blood Pressure 143/87 H 11/29/24 12:24 Pulse Oximetry 99 11/29/24 12:24 Oxygen Delivery Room Air 11/29/24 12:24 Critical Care Time Critical Care Time Critical Care Time: No Discharge Plan Discharge Clinical Impression: Otitis externa Qualifiers: Otitis externa type: unspecified type Chronicity: acute Laterality: left Qualified Code(s): H60.502 - Unspecified acute noninfective otitis externa, left ear Patient Disposition: Home Condition: Stable Instructions: Antibiotic Form, Swimmer's Ear (ED) Additional Instructions: Take Augmentin as prescribed Use ear drops as prescribed Avoid getting water in ear Alternate Motrin and Tylenol as needed for pain Follow-up with primary care provider if symptoms not improving proceed to the emergency room if symptoms worsen Patient Language: Hebrew Prescriptions: New amoxicillin-pot clavulanate 875-125 mg tablet 1 tablet PO Q12H 10 Days Qty: 20 0RF ofloxacin 0.3 % drops 5 drp EACH EAR BID 7 Days Qty: 5 0RF No Action Lantus U-100 Insulin 100 unit/mL Solution 50 unit SUBCUT BID metformin 500 mg Tablet 500 mg PO BID amlodipine 5 mg Tablet 5 mg PO DAILY simvastatin 20 mg Tablet 20 mg PO DAILY lisinopril 10 mg Tablet 10 mg PO DAILY albuterol sulfate 90 mcg/actuation HFA aerosol inhaler 2 puff INHALATION QID PRN (Reason: shortness of breath or wheezing) Qty: 8.5 0RF sitagliptin 100 mg tablet atorvastatin 40 mg tablet albuterol sulfate 90 mcg/actuation HFA aerosol inhaler 2 puff inhalation QID PRN (Reason: shortness of breath or wheezing) Qty: 8.5 1RF Follow-up/Referrals: UNKNOWN,DOCTOR [Primary Care Provider] - Time of Disposition: 12:38
== END 2024-11-29 12:43 | disposition home or self-care (01) ==
PROVIDERS: Emergency Provider Nurse Practitioner Family
DX: H60.502 Unspecified acute noninfective otitis externa, left ear (principal); I10 Essential (primary) hypertension; E11.9 Type 2 diabetes mellitus without complications; Z79.4 Long term (current) use of insulin; Z79.84 Long term (current) use of oral hypoglycemic drugs; J44.9 Chronic obstructive pulmonary disease, unspecified; E78.5 Hyperlipidemia, unspecified; I25.2 Old myocardial infarction; F17.210 Nicotine dependence, cigarettes, uncomplicated; F12.90 Cannabis use, unspecified, uncomplicated
CPT/HCPCS: 99213; G0463

== ENCOUNTER 2025-02-10 12:34 | Emergency (ER) | payer BC, SELFPAY ==
[2025-02-10 12:43] VITALS: BP 141/73; PULSE 99; RESP 18; TEMP 36.3; O2SAT 97
--- NOTE | 2025-02-10 13:14 | ED_ITS ---
HPI - Ear Problem General Chief complaint: Ear Stated complaint: Left Ear Pain Time Seen by Provider: 02/10/25 13:00 Source: patient and RN notes reviewed Mode of arrival: ambulatory Limitations: no limitations History of Present Illness HPI Narrative: 49-year-old male patient presents to the [facility] complaining of left ear pain for approximately 2-3 days. Patient also reports not feeling well. Patient reports slight congestion but no runny nose, sore throat, cough, any other upper respiratory symptoms, fevers, eczema chills, chest pain, difficulty breathing, nausea vomiting abdominal pain, diarrhea, or other symptoms. Patient reports some drainage coming out of his left ear as well. Patient reports a history of diabetes and hypertension. Related Data Home Medications ?Medication ?Instructions ?Recorded ?Confirmed ?Last Taken ?Type amlodipine 5 mg tablet 5 mg PO DAILY 03/11/2103/11 Unknown History insulin glargine 100 unit/mL 50 unit subcut BID 03/11/21 Unknown History subcutaneous solution (Lantus U-100 Insulin) lisinopril 10 mg tablet 10 mg PO DAILY 03/11/2102/15 Unknown History metformin 500 mg tablet 500 mg PO BID 03/11/2103/11 Unknown History simvastatin 20 mg tablet 20 mg PO DAILY 03/11/2102/15 Unknown History atorvastatin 40 mg tablet mg 02/03/23 Unknown History sitagliptin 100 mg tablet mg 11/29/24 Unknown History aripiprazole 15 mg tablet mg 02/10/25 Unknown History Allergies Allergy/AdvReac Type Severity Reaction Status Date / Time No Known Allergies Allergy Verified 02/10/25 12:43 Review of Systems Review of Systems: CONSTITUTIONAL: Denies fever, chills, or sweats. Positive for malaise. EYES: Denies visual changes, redness, or discharge. ENT: Denies rhinorrhea, sore throat. Positive for otalgia and congestion. CARDIOVASCULAR: Denies chest pain, palpitations, or edema. RESPIRATORY: Denies cough or dyspnea. GASTROINTESTINAL: Denies abdominal pain, nausea, vomiting, or diarrhea. GENITOURINARY: Denies dysuria or hematuria. SKIN: Denies rash or itching. MUSCULOSKELETAL: Denies back pain, joint pain, or myalgia. NEUROLOGIC: Denies headache, numbness, or weakness. PSYCHIATRIC: Denies anxiety or depression. All other systems reviewed are negative, except as documented in HPI. FOR[facility]LY [facility], [facility] Past Medical History Medical History Fracture of left foot Fracture of right foot Myocardial infarction Hypertension Anxiety and depression Asthmatic bronchitis Hyperlipemia COPD (chronic obstructive pulmonary disease) Diabetes Social History Social History Smoking packs per day: 2 Smoking cigarettes per day: 40.0 Years smoked: 22 Smoking pack-years: 44.00 Smoking status: Current every day smoker Additional smoking assessment comments: states smoking one pack per day Alcohol intake: current Alcohol use details: occasional Substance use: current Substance use type: marijuana Last use: occasional use Living arrangements: with family Gender identity (if verbalized by the patient): Male Comments At the time of my signature, I reviewed and agree with the nursing past medical, surgical, social, and family history. There is no relevant family history pertinent to the patient complaint. Exam Narrative: GENERAL: This is a well-nourished, well-developed adult, in no apparent distress. They are non ill-appearing, nontoxic appearing. HEAD: normocephalic, atraumatic. EYES: Sclera clear/white. Conjunctiva normal. Vision is grossly intact. Extraocular movements intact EARS: External ears normal, right auditory canal clear and without drainage, left auditory canal erythematous with exudate. Right TM normal without perforation. Left TM erythematous without suppuration. Left TM intact. Hearing grossly intact. NOSE: External nose normal with no obvious nasal discharge, nasal turbinates without redness, no rhinorrhea. THROAT: Mucous membranes moist, posterior pharynx erythema without swelling. Uvula midline. Postnasal drip present. NECK: Neck supple, non-tender without lymphadenopathy, masses or thyromegaly. CARDIOVASCULAR: Regular rate and rhythm without murmurs, gallops, or rubs. RESPIRATORY: Clear to auscultation. Breath sounds equal bilaterally. No wheezes, rales, or rhonchi. SKIN: warm, Dry, intact with no suspicious lesions or rash, good texture and turgor. NEURO: awake, alert, and oriented to person, place and time. There were no obvious focal neurologic abnormalities. EXTREMITIES: No joint tenderness, effusion, or edema noted. BACK: Nontender without deformity. No CVA tenderness. Course Course Emergency Course: Portions of this record may have been created with voice recognition software Level of Care: Express Care Visit Vital Signs Vital signs: Vital Signs Temperature 97.3 F L 02/10/25 12:43 Pulse Rate 99 02/10/25 12:43 Respiratory Rate 18 02/10/25 12:43 Blood Pressure 141/73 H 02/10/25 12:43 Pulse Oximetry 97 02/10/25 12:43 Oxygen Delivery Room Air 02/10/25 12:43 Temperature 97.3 F L 02/10/25 12:43 Pulse Rate 99 02/10/25 12:43 Respiratory Rate 18 02/10/25 12:43 Blood Pressure 141/73 H 02/10/25 12:43 Pulse Oximetry 97 02/10/25 12:43 Oxygen Delivery Room Air 02/10/25 12:43 Reviewed Medical Decision Making MDM Narrative Medical decision making narrative: Appears patient has otitis externa and otitis media. Will treat with amoxicillin and ofloxacin ear drops. Discussed physical exam findings. Advised supportive measures and signs/symptoms to go to the ER. Pt is appropriate for outpt treatment and f/u. Differential Diagnosis Differential Diagnosis: Upper respiratory infection, otitis media, otitis externa, viral illness Vital Signs Vital Signs: Vital Signs Temperature 97.3 F L 02/10/25 12:43 Pulse Rate 99 02/10/25 12:43 Respiratory Rate 18 02/10/25 12:43 Blood Pressure 141/73 H 02/10/25 12:43 Pulse Oximetry 97 02/10/25 12:43 Oxygen Delivery Room Air 02/10/25 12:43 Temperature 97.3 F L 02/10/25 12:43 Pulse Rate 99 02/10/25 12:43 Respiratory Rate 18 02/10/25 12:43 Blood Pressure 141/73 H 02/10/25 12:43 Pulse Oximetry 97 02/10/25 12:43 Oxygen Delivery Room Air 02/10/25 12:43 Critical Care Time Critical Care Time Critical Care Time: No Discharge Plan Discharge Clinical Impression: Otitis externa Qualifiers: Otitis externa type: diffuse Chronicity: acute Laterality: left Qualified Code(s): H60.312 - Diffuse otitis externa, left ear Otitis media Qualifiers: Otitis media type: other nonsuppurative Chronicity: acute Laterality: left Recurrence: non-recurrent Qualified Code(s): H65.192 - Other acute nonsuppurative otitis media, left ear Patient Disposition: Home Condition: Stable Instructions: Antibiotic Form, How to Use Ear Drops (ED), Ear Infection (ED) Additional Instructions: Take ofloxacin drops as directed. Avoid water or anything into the ear for one week Take amoxicillin as directed. You may take Zyrtec as needed for congestion. Follow instructions on the bottle. Symptomatic treatment includes: rest, fluids, and increase humidity of the air at home. Tylenol or ibuprofen as needed for pain or fevers. Follow instructions on the b ottle. Please schedule a follow-up visit with your personal physician for further evaluation and treatment within 3-5days. Developed worsening symptoms, severe headaches, vision changes, dizziness, vo miting, fevers, breathing problems, chest pains, or any serious concerns please go to the ER immediately. Patient Language: Telugu Prescriptions: New ofloxacin 0.3 % drops 10 drp LEFT EAR DAILY 7 Days Qty: 10 0RF amoxicillin 875 mg tablet 875 mg PO Q12H 7 Days Qty: 14 0RF No Action Lantus U-100 Insulin 100 unit/mL Solution 50 unit SUBCUT BID metformin 500 mg Tablet 500 mg PO BID amlodipine 5 mg Tablet 5 mg PO DAILY simvastatin 20 mg Tablet 20 mg PO DAILY lisinopril 10 mg Tablet 10 mg PO DAILY albuterol sulfate 90 mcg/actuation HFA aerosol inhaler 2 puff INHALATION QID PRN (Reason: shortness of breath or wheezing) Qty: 8.5 0RF sitagliptin 100 mg tablet aripiprazole 15 mg tablet atorvastatin 40 mg tablet albuterol sulfate 90 mcg/actuation HFA aerosol inhaler 2 puff inhalation QID PRN (Reason: shortness of breath or wheezing) Qty: 8.5 1RF Follow-up/Referrals: PHYSICIAN NOT ON STAFF,NONSTAFF [Primary Care Provider] Time of Disposition: 13:10
--- OUTSIDE RECORDS SUMMARY | 2025-02-10 14:15 | XMS_ITS | Clinical Summary ---
Author Organization [facility] Address [address] [place] [address] Phone Care Team Providers Care Student Life Advisor Name Role Phone Arun Guallpa APRN, JASON Primary Care Pr ovider Allergies No known active allergies Medications Blood Glucose Monitoring Suppl DeviceIndications: Type 2 diabetes mellitus with hyperglycemia, without long-term current use of insulin Diagnosis: Diabetes type 2 Blood testing frequency: 2-3 times a day E11.65. 1 Each 12/11/19 24 Active Glucose Blood StripIndications:T ype 2 diabetes mellitus with hyperglycemia, without long-term current use of insulin Use to check blood glucose 2-3 times a day as directed. E11.65. 100 Strip 12/11/19 Active Lancets MiscIndications:Ty pe 2 diabetes mellitus with hyperglycemia, without long-term current use of insulin Use to check blood glucose 2-3 times a day as directed. E11.65. 100 Lancet . 12/11/19 24 Active Alcohol Swabs (Alcohol Prep) 70 % PadsIndications:Ty pe 2 diabetes mellitus with hyperglycemia, without long-term current use of insulin Use to check blood glucose 2-3 times a day as directed. E11.65. 200 Each 12/11/19 24 Active Insulin Pen Needle (BD ULTRA-FINE PEN NEEDLES) 29G X 12.7MM MiscIndications:Ty pe 2 diabetes mellitus with hyperglycemia, with long-term current use of insulin Use as directed with long acting insulin. 100 Each 12/18/19 24 Active dicyclomine (BENTYL) 20 MG Tablet Take 1 Tablet by mouth every 6 hours. 30 Tablet 04/28/19 25 Active diclofenac (VOLTAREN) 75 MG Tablet Delayed ResponseIndication s:Plantar fasciitis, left Take 1 Tablet by mouth 2 times daily. 60 Tablet 2 05/13/19 25 Active albuterol (ProAir HFA) 108 (90 Base) MCG/ACT Aerosol SolutionIndication s:COPD exacerbation take 2 Puffs by inhalation every 4 hours as needed for Wheezing. 8.5 g 5 05/13/19 25 Active Jardiance 25 MG TabletIndications: Type 2 diabetes mellitus with hyperglycemia TAKE 1 TABLET BY MOUTH EVERY DAY [...] hyperglycemia, with long-term current use of insulin 36 Units by Subcutaneous route nightly. 9 mL 07/11/19 25 Active SITagliptin (JANUVIA) 100 MG TabletIndications: Type 2 diabetes mellitus with hyperglycemia, with long-term current use of insulin Take 1 Tablet by mouth daily. 90 Tablet 3 07/11/19 25 Active traMADol (ULTRAM) 50 MG TabletIndications: Left flank pain Take 1-2 Tablets by mouth every 6 hours as needed for Mild or more severe pain. 20 Tablet 12/09/19 25 Active Budeson-Glycopyrro l-Formoterol (Breztri Aerosphere) 160-9-4.8 MCG/ACT AerosolIndications :COPD exacerbation take 2 Puffs by inhalation 2 times daily. 3 g 3 12/26/19 25 Active Insulin Lispro, 1 Unit Dial, (HumaLOG KwikPen) 100 UNIT/ML Solution Pen-injectorIndica tions:Type 2 diabetes mellitus with hyperglycemia, with long-term current use of insulin 5 Units by Subcutaneous route 3 times daily (before meals). 15 mL 12/26/19 25 Active nicotine (NICODERM CQ) 21 MG/24HR PATCH 24 HRIndications:COPD exacerbation 1 Patch by Transdermal route every 24 hours. 30 Patch 12/26/19 25 Active nicotine (NICODERM CQ) 14 MG/24HR PATCH 24 HRIndications:COPD exacerbation 1 Patch by Transdermal route every 24 hours. 30 Patch 12/26/19 25 Active nicotine (NICODERM CQ) 7 MG/24HR PATCH 24 HRIndications:COPD exacerbation 1 Patch by Transdermal route every 24 hours. 30 Patch 12/26/19 25 Active methylPREDNISolone (MEDROL DOSPACK) 4 MG Tablet Therapy Pack See product package insert for dosing schedule 21 Tablet 12/31/19 25 Active ipratropium-albute rol (DUO-NEB) 0.5-2.5 (3) MG/3ML SolutionIndication s:COPD exacerbation 3 mL by Nebulization route 4 times daily. 360 mL 5 01/03/20 25 Active Active Problems Problem Noted Date Diagnosed Date Psoriasis 01/02/2025 Other cirrhosis of liver 12/18/2023 OCD (obsessive compulsive disorder) 12/11/2023 Bipolar disorder 12/11/2023 Hypertension 06/30/2018 Dyslipidemia 06/30/2018 Lactic acidosis 06/29/2018 Diabetes mellitus 06/29/2018 COPD (chronic obstructive pulmonary disease) Chest pain on breathing 06/29/2018 Asthma Encounters Date Type Department Care Team Description 01/27/2025 10:26 AM CDT - 01/27/2025 11:59 PM CDT Hospital Encounter [facility] Respiratory Therapy [address] [place] [phone] Arun Guallpa, ALLOCATION ANALYST, AUTO WASH BUFFER Discharge Disposition: Discharged to home or Selfcare 01/27/2025 Travel 01/12/2025 Telephone [facility] [address] [phone] Magdi Gates MD 01/07/2025 Patient Outreach [facility] [address] [place] [phone] Nieves Carlisle RN [facility] enrollment outreach 01/05/2025 Patient Outreach [facility] [address] [place] [address] Nieves Carlisle RN [facility] enrollment outreach 01/02/2025 8:30 AM CDT Office Visit [facility] [address] [place] [address] Arun Guallpa APRN, CNP COPD exacerbation (HCC) (Primary Dx); Psoriasis Discharge Disposition: Discharged to home or Selfcare 01/02/2025 Patient Outreach [facility] [address] [place] [address] Nieves Carlisle RN [facility] enrollment outreach 12/30/2024 1:39 PM CDT - 12/30/2024 5:22 PM CDT [facility] [address] [place] [address] Brittney Grey MD COPD exacerbation Discharge Disposition: Discharged to home or Selfcare 12/30/2024 Travel 12/26/2024 10:46 AM CDT - 12/26/2024 11:59 PM CDT Hospital Encounter [facility]iology [address] [place] [address] Arun Guallpa APRN, JASON Discharge Disposition: Discharged to home or Selfcare 12/25/2024 8:15 AM CDT Office Visit [facility] [address] [place] [address] Arun Guallpa APRN, CNP COPD exacerbation (HCC) (Primary Dx); Type 2 diabetes mellitus with hyperglycemia, with long-term current use of insulin (HCC); Screening for diabetic retinopathy; Screening for colon cancer; Encounter for immunization Discharge Disposition: Discharged to home or Selfcare 12/25/2024 Travel 12/15/2024 8:36 PM CDT - 12/16/2024 12:54 AM CDT Emergency [facility] Emergency [address] [place] [address] Clemente Ocasio MD COPD exacerbation Discharge Disposition: Discharged to home or Selfcare 12/15/2024 Travel 12/08/2024 7:44 PM CDT - 12/08/2024 9:31 PM CDT Emergency [facility] Emergency [address] [place] [address] Clemente Ocasio MD Left flank pain Discharge Disposition: Discharged to home or Selfcare 12/08/2024 Travel from Last 3 Months Immunizations Immunization Administration Dates Next Due Influenza, Injectable, Quadrivalent 09/2022,05/19/2022,05/01/2019,01/24,02/15/2016,02/15/2015 Influenza,Split Virus,Trivalent,Injectable,PF 12/25/2024,01/08/2024 Pneumococcal Vaccine Adult - 23 Valent 6 Pneumococcal conjugate PCV20 , polysaccharide [id number] conjugate, adjuvant, PF 04/07/2024 TDAP Vaccine 07/31/2016 [...] = 0.6 oz pur e alcohol) OCCASIONALLY [employer] Answer Date Recorded In the past 12 months has [employer], oil, or [employer] threatened to shut off services in your home? No 12/11/2023 Social Connection and Isolation Panel Answer Date Recorded In a typical week, how many times do you talk on the phone with family, friends, or neighbors? Never 12/11/2023 How often do you get togethe r with friends or relatives? Once a week 12/11/2023 How often do you attend jehovah's witness or yazidism serv ices? Never 12/11/2023 Do you belong to any clubs o r organizations such as jehovah's witness groups, unions, fraternal or athletic groups, or [...] Total Score - Questions 1-9 0 04/16 [facility] - Occupational Stress Questionnaire Answer Date Recorded [...] any time in the past 12 m [facility], were you homeless or living in a penitentiary (including now)? No 12/11/2023 Sex and Gender Information Value Date Recorded Sex Assigned at Male 05/09/2024 12:20 AM DIRECTOR OF SEARCH ENGINE MARKETING Legal Sex Male 9:37 PM CDT Gender Identity Male 05/09/2024 12:20 AM DIRECTOR OF SEARCH ENGINE MARKETING Sexual Orientation Not on file Last Filed Vital Signs Vital Sign Reading Time Taken Comments Blood Pressure 118/74 01/02/2025 8:28 AM CDT Pulse 101 01/02/2025 8:28 AM CDT Temperature 36.8 C (98.2 F) 01/02/2025 8:28 AM CDT Respiratory Rate 16 01/02/2025 8:28 AM CDT Oxygen Saturation 95% 01/02/2025 8:28 AM CDT Inhaled Oxygen Concentration - - Weight 100.7 kg (222 lb) 01/02/2025 8:28 AM CDT Height 182.9 cm (6') 01/02/2025 8:28 AM CDT Body Mass Index 30.11 01/02/2025 8:28 AM CDT Plan of Treatment Upcoming Encounters Date Type Department Care Team (Late st Contact Info) Description 04/03/2025 8:45 AM DIRECTOR OF SEARCH ENGINE MARKETING Office Visit [facility] [address] [place] [address] Arun Guallpa, ALLOCATION ANALYST, AUTO WASH BUFFER [address] [address] Health Maintenance Due Date Last Done Comments Diabetes: Eye Exam 1973 Hepatitis B Immunization (1 of 3 - 19+ 3-dose series) 1992 Cologuard 2018 Colonoscopy 2018 Colorectal Cancer Screening 2018 Immunochemical Fecal Occult Blood 2018 Zoster Immunization (1 of 2) 09/26/2023 SARS-COV-2 Immunization ( season) 2024 Diabetes: Foot Exam 01/07/2025 01/08/2024, Diabetes: Hemoglobin A1c 06/24/2025 025, 07/10/2024, 04/07/2024, Additional history exists Diabetes: Nephropathy Screening 12/30/2025 12/30/2024, 12/26/2024, 12/15/2024, Additional history exists Td Immunization Every 10 Years (Adults With 1 Tdap) 07/31/2026 07/31/2016 Respiratory Syncytial Virus (RSV) Immunization (Adult) (1 - 1-dose 75+ series) 2048 DTaP/Tdap/Td Immunization Discontinued 07/31/2016 TdaP Immunization Discontinued 07/31/2016 Hepatitis C Virus (HCV) Screening Completed 12/12/2023 Pneumococcal Immunization (50+ years) Completed 04/07/2024, 08/12/2015 Pneumococcal Immunization Combined Discontinued 04/07/2024, 08/12/2015 Influenza Immunization Completed , 01/08/2024, 02/19/2023, Additional history exists Human Papillomavirus (HPV) Immunization Aged Out No longer eligible based on patient's age to complete this topic Meningococcal Immunization (ACWY) Aged Out No longer eligible based on patient's age to complete this topic Rotavirus Immunization Aged Out No lo nger eligible based on patient's age to complete this topic Procedures Procedure Name Priority Date/Time Associated Diagnosis Comments COMPLETE PFT W + W/O BRONCHODILATOR Routine 01/27/2025 COPD exacerbation BLOOD GASES, VENOUS W/ O2 SATURATION STAT 12/30/2024 3:11 PM CDT XR CHEST SINGLE VIEW PORTABLE STAT 12/30/2024 2:50 PM CDT CBC WITH AUTO DIFFERENTIAL STAT 12/30/2024 2:45 PM CDT D-DIMER STAT 12/30/2024 2:45 PM CDT N-TERMINAL- PRO B TYPE NATRIURETIC PEPTIDE STAT 12/30/2024 2:45 PM CDT TROPONIN I, HIGH SENSITIVITY (HSTRP) STAT 12/30/2024 2:45 PM CDT CMP (COMPREHENSIVE METABOLIC PANEL) STAT 12/30/2024 2:45 PM CDT COMPLETE BLOOD COUNT (CBC) WITH DIFF STAT 12/30/2024 2:45 PM CDT RSV,SARS-COV-2,INFLU ELEANOR A&B BY PCR STAT 12/30/2024 2:45 PM CDT EKG 12 LEAD STAT 12/30/2024 1:52 PM CDT EKG SCAN 12/30/2024 12:00 AM CDT XR CHEST 2 VIEWS Routine 12/26/2024 11:12 AM CDT COPD exacerbation (HCC) UR MICROALBUMIN/CREATIN INE RATIO RANDOM Routine 12/26/2024 10:42 AM CDT Type 2 diabetes mellitus with hyperglycemia, with long-term current use of insulin (HCC) POCT GLYCOSYLATED HEMOGLOBIN Routine 12/25/2024 8:51 AM CDT Type 2 diabetes mellitus with hyperglycemia, with long-term current use of insulin (HCC) XR CHEST SINGLE VIEW PORTABLE STAT 12/15/2024 9:47 PM CDT AEROSOL NEBULIZER-INITIAL STAT 12/15/2024 9:42 PM CDT BLOOD GASES, VENOUS W/ O2 SATURATION STAT 12/15/2024 9:37 PM CDT GOLD TOP TUBE STAT 12/15/2024 9:17 PM CDT BLUE TOP TUBE STAT 12/15/2024 9:17 PM CDT CBC WITH AUTO DIFFERENTIAL STAT 12/15/2024 9:17 PM CDT EXTRA TUBES STAT 12/15/2024 9:17 PM CDT CMP (COMPREHENSIVE METABOLIC PANEL) STAT 12/15/2024 9:17 PM CDT COMPLETE BLOOD COUNT (CBC) WITH DIFF STAT 12/15/2024 9:17 PM CDT TROPONIN I, HIGH SENSITIVITY (HSTRP) STAT 12/15/2024 9:17 PM CDT ED EAR CERUMEN REMOVAL Routine 12/15/2024 9:03 PM CDT EKG 12 LEAD STAT 12/15/2024 8:36 PM CDT EKG SCAN 12/15/2024 12:[address] RENAL STONE STUDY (ABDOMEN AND PELVIS W/O CONTRAST) Stat with Interpretation 12/08/2024 8:25 PM CDT URINALYSIS REFLEX IF INDICATED BY ABNORMAL RESULTS STAT 12/08/2024 8:13 PM CDT CBC WITH AUTO DIFFERENTIAL STAT 12/08/2024 8:05 PM CDT LIPASE STAT 12/08/2024 8:05 PM CDT COMPLETE BLOOD COUNT (CBC) WITH DIFF STAT 12/08/2024 8:05 PM CDT CMP (COMPREHENSIVE METABOLIC PANEL) STAT 12/08/2024 8:05 PM CDT HEPATITIS C ANTIBODY Routine 12/12/2023 1:40 PM CDT Encounter for hepatitis C screening test for low risk patient from Last 3 Months or Most Recently Relevant to Health Maintenance Results * (ABNORMAL) Blood Gases, Venous w/ O2 Saturation (12/30/2024 3:11 PM CDT) Only the most recent of2 resultswithin the time period is included. O2 STATUS RA 12/30/2024 3:14 PM CDT [facility] PH VENOUS 7.39 7.34 - 7.43 12/30/2024 3:14 PM CDT [facility] PCO2 (VENOUS) 47 41 - 51 mmHg 12/30/2024 3:14 PM CDT [facility] PO2 VENOUS 40 30 - 50 mmHg 12/30/2024 3:14 PM CDT [facility] O2 SAT JADA, MEASURED 54(L) 60 - 85 % 12/15 3:14 PM T [facility] BICARBONATE 28.3(H) 22.0 - 26.0 mmol/L 12/30/2024 3:14 PM CDT [facility] BASE VENOUS 3.0 -2.0 - 3.0 mmol/L 12/30/2024 3:14 PM CDT [facility] CARBOXYHEMOGLOBIN 2.1 0.0 - 5.0 % 12/30/2024 3:14 PM [facility] METHEMOGLOBIN 0.5 0.0 - 1.5 % 12/30/2024 3:14 PM T [facility] JADA Blood Gas Venipuncture / Unknown 12/30/2024 3:11 PM CDT 12/30/2024 3:11 PM CDT Narrative [facility] - 12/30/2024 3:14 PM CDT Interpretation - The usual approach to interpreting a VBG consists of using the venous measurements to estimate the corresponding arterial values, then using these estimated values for clinical decision-making exactly as if an ABG had been performed. The difference between the venous measurements and the arterial measurements depends upon the site of venous sampling and varies among laboratories. Correlation with arterial blood gases - Although arterial blood gas analysis is more accurate than venous analysis for the assessment of oxygenation, measurement of PCO2, pH, and HCO3 are similar with some minor adjustments: The central venous pH is usually 0.03 to 0.05 pH units lower than the arterial pH and the PCO2 is usually 4 to 5 mmHg higher, with little or no increase in HCO3. Mixed venous blood (ie, SvO2 drawn from a pulmonary artery catheter) gives results similar to central venous blood (ie, ScvO2 drawn from a central venous catheter). The peripheral venous pH is approximately 0.02 to 0.04 pH units lower than the arterial pH, the venous serum HCO3 concentration is approximately 1 to 2 meq/L higher, and the venous PCO2 is approximately 3 to 8 mmHg higher. There are no venous to arterial conversions for ScvO2, SvO2, or peripheral venous oxyhemoglobin saturation (PvO2). Importantly, sufficient variability between arterial and venous blood gas values may exist such that periodic correlation between arterial and venous blood gas values is always prudent. us Brittney Grey MD CHEMISTRY ORDERABLES Final Re sult [facility] [address] [place] [address] * XR CHEST SINGLE VIEW PORTABLE (12/30/2024 2:50 PM CDT) Only the most recent of2 resultswithin the time period is included. Anatomical Region Laterality Modality Chest N/A Computed Radiogr aphy 12/30/2024 2:50 PM CDT Impressions 12/30/2024 3:19 PM CDT IMPRESSION: 1. No acute abnormality identified. Narrative 12/30/2024 3:19 PM CDT DICTATING PHYSICIAN: Chadwick Zarco EXAM: XR CHEST SINGLE VIEW PORTABLE DATE: 12/30/2024 2:50 PM COMPARISON: 12/26/2024 CLINICAL HISTORY: Ordering clinician listed reason for examination productive cough, SOB x 2 weeks. pt states he completed antibiotics with no relief. Hx of asthma, COPD, HTN, DM, current smoker REFERRING PROVIDER: BRITTNEY GREY FINDINGS: AP portable lordotic chest. Hyperinflated lungs. Flattened hemidiaphragms. Increased linear interstitial opacities. Normal heart size. No airspace consolidation, pneumothorax, or pleural effusion. Hypertrophic degenerative spondylosis. No significant change. Procedure Note Chadwick Zarco MD - 12/30/2024 DICTATING PHYSICIAN: Chadwick Zarco EXAM: XR CHEST SINGLE VIEW PORTABLE DATE: 12/30/2024 2:50 PM COMPARISON: 12/26/2024 CLINICAL HISTORY: Ordering clinician listed reason for examinationproductive cough, SOB x 2 weeks. pt states he completed antibiotics withno relief. Hx of asthma, COPD, HTN, DM, current smoker REFERRING PROVIDER: BRITTNEY GREY FINDINGS: AP portable lordotic chest. Hyperinflated lungs. Flattenedhemidiaphragms. Increased linear interstitial opacities. Normal heartsize. No airspace consolidation, pneumothorax, or pleural effusion.Hypertrophic degenerative spondylosis. No significant change. IMPRESSION: 1. No acute abnormality identified. Brittney Grey MD IMG DIAGNOSTIC ORDERABLES Fin al Result * NT-proBNP (12/30/2024 2:45 PM CDT) NT PROBNP 60.0 <450.0 pg/mL 12/30/2024 3:40 PM CDT [facility] Comment: AGE pg/mL INTERPRETATION All <300 Negative: HF (Heart Failure) unlikely 18 to <50 >=300.0 to <450.0 Indeterminate. Consider other causes of NT-proBNP elevation 50 to 75 >=300.0 to <900.0 Indeterminate. Consider other causes of NT-proBNP elevation >75 >=300.0 to <1800.0 Indeterminate. Consider other causes of NT-proBNP elevation 18 to <50 >=450.0 Positive: HF likely 50 to 75 >=900.0 Positive: HF likely >75 >=1800.0 Positive: HF likely Total protein levels at or above 12.6 mg/dl may falsely decrease NT-proBNP values. Blood Venipuncture / Unknown 12/30/2024 2:45 PM CDT 12/30/2024 3:00 PM CDT Brittney Grey MD CHEMISTRY ORDERABLES Final Re sult [facility] [address] [place] [address] * RSV,SARS-COV-2,INFLUENZA A&B BY PCR (12/30/2024 2:45 PM CDT) FLU A Negative Negative, Error 12/30/2024 3:40 PM CDT [facility] FLU B Negative Negative 12/30/2024 3:40 PM CDT [facility] RESP SYNC VIRUS Negative Negative 3:40 PM CDT [facility] SARSCOV2 NOT DETECTED (Reference Range for this test is Not Detected) 12/30/2024 3:40 PM CDT [facility] Comment:This test was perfor med by a Reverse Range Mechanic PCR Method. Nasal NASOPHARYNGEAL STRUCTURE / Unknown Non-Phlebotomy Collection / Unknown 12/30/2024 2:45 PM CDT 12/30/2024 3:00 PM CDT Brittney Grey MD MICROBIOLOGY - GENERAL ORDERA BLES Final Result Performing Organization Address [facility] de Phone Number [facility] [address] [place] [address] * TROPONIN I, HIGH SENSITIVITY (HSTRP) (12/30/2024 2:45 PM CDT) Only the most recent of2 resultswithin the time period is included. Pathologist [facility] TROPONIN I, HIGH SENSITIVITY- [place] <2.7 <=35.0 ng/L 12/30/2024 3:40 PM CDT [facility] Comment: High-sensitivity troponin I results are reported in ng/L making the result appear to be 1,000 times higher than the contemporary troponin I value which is reported in ng/ml. Results from [facility]. Blood Venipuncture / Unknown 12/30/2024 2:45 PM CDT 12/30/2024 3:00 PM CDT Brittney Grey MD CHEMISTRY ORDERABLES Final Re sult Performing Organization Address [facility] Co de Phone Number [facility] [address] [place] [address] * (ABNORMAL) CBC with Auto Differential (12/30/2024 2:45 PM CDT) Only the most recent of3 resultswithin the time period is included. WBC 9.09 4.00 - 12.00 10(3)/[facility] 12/30/2024 3:10 PM CDT [facility] RBC 4.64 4.40 - 5.80 10(6)/[facility] 12/30/2024 3:10 PM CDT [facility] HEMOGLOBIN (HGB) 15.0 13.0 - 16.5 g/dL 12/30/2024 3:10 PM CDT [facility] HEMATOCRIT (HCT) 43.7 38.0 - 50.0 % 12/30/2024 3:10 PM CDT [facility] MCV 94.2 82.0 - 96.0 fL 12/30/2024 3:10 PM CDT [facility] MCH 32.3(H) 26.0 - 32.0 pg 12/30/2024 3:10 PM CDT [facility] MCHC 34.3 31.0 - 36.0 g/dL 12/30/2024 3:10 PM CDT [facility] PLATELET COUNT 225 140 - 440 10(3)/[facility] 12/30/2024 3:10 PM CDT [facility] RDW 12.8 11.8 - 15.5 % 12/30/2024 3:10 PM CDT [facility] MPV 11.7 8.0 - 12.6 fL 12/30/2024 3:10 PM CDT [facility] NEUTROPHILS 54.9 40.0 - 68.0 % 12/30/2024 3:10 PM CDT [facility] LYMPHOCYTES 33.4 19.0 - 49.0 % 12/30/2024 3:10 PM CDT [facility] MONOCYTES 8.6 3.0 - 13.0 % 12/30/2024 3:10 PM CDT [facility] EOSINOPHILS 1.5 0.0 - 8.0 % 12/30/2024 3:10 PM CDT [facility] BASOPHILS 0.7 0.0 - 1.0 % 12/30/2024 3:10 PM CDT [facility] IMMATURE GRANULOCYTE 0.9(H) 0.0 - 0.4 % 12/30/2024 3:10 PM CDT [facility] Comment:Immature Granulocyte s includes Metamyelocytes, Myelocytes, and Promyelocytes. ABSOLUTE NEUTROPHILS 4.99 1.40 - 5.30 10(3)/[facility] 12/30/2024 3:10 PM CDT [facility] ABSOLUTE LYMPHOCYTES 3.04 0.90 - 3.30 10(3)/[facility] 12/30/2024 3:10 PM CDT [facility] ABSOLUTE MONOCYTES 0.78 0.10 - 0.90 10(3)/[facility] 12/30/2024 3:10 PM CDT [facility] ABSOLUTE EOSINOPHIL 0.14 0.00 - 0.50 10(3)/[facility] 12/30/2024 3:10 PM CDT [facility] ABSOLUTE BASOPHILS 0.06 0.00 - 0.10 10(3)/[facility] 12/30/2024 3:10 PM CDT [facility] ABSOLUTE IMMATURE GRANULOCYTE 0.08(H) 0.00 - 0.03 10 (3) [facility]. 12/30/2024 3:10 PM CDT [facility] NRBC PER 100 WBC 0 12/31/19 25 3:10 PM CDT [facility] Blood Venipuncture / Unknown 12/30/2024 2:45 PM CDT 12/30/2024 3:00 PM CDT us Brittney Grey MD HEMATOLOGY ORDERABLES Final R esult [facility] [address] [place] [address] * D-DIMER [id number] (12/30/2024 2:45 PM CDT) D DIMER <=0.27 <0.50 mcg/mL FEU 12/30/2024 3:54 PM CDT [facility] Blood Venipuncture / Unknown 12/30/2024 2:45 PM CDT 12/30/2024 3:00 PM CDT Narrative [facility] - 12/30/2024 3:54 PM CDT The FDA has approved this method to exclude the diagnosis of DVT and/or PE at the cutoff value of <0.50 mcg/mL FEU. us Brittney Grey MD HEMATOLOGY ORDERABLES Final R esult [facility] [address] [place] [address] * (ABNORMAL) Comprehensive Metabolic Panel (Cmp) [id number] (12/30/2024 2:45 PM CDT) Only the most recent of3 resultswithin the time period is included. SODIUM 135(L) 136 - 145 mmol/L 12/30/2024 3:35 PM CDT [facility] POTASSIUM 3.8 3.5 - 5.1 mmol/L 12/30/2024 3:35 PM CDT [facility] CHLORIDE 101 98 - 107 mmol/L 12/30/2024 3:35 PM CDT [facility] CO2, VENOUS 26 22 - 30 mmol/L 12/30/2024 3:35 PM CDT [facility] ANION GAP 11.8 <18.0 mmol/L 12/30/2024 3:35 PM CDT [facility] GLUCOSE 314(H) 70 - 99 mg/dL 12/30/2024 3:35 PM CDT [facility] BUN 9 8 - 26 mg/dL 12/30/2024 3:35 PM CDT [facility] CREATININE, BLOOD 0.56(L) 0.70 - 1.30 mg/dL 12/30/2024 3:35 PM CDT [facility] BUN/CREATININE RATIO 16 12 - 20 ratio 12/30/2024 3:35 PM CDT [facility] TOTAL PROTEIN 6.8 6.0 - 8.0 g/dL 12/30/2024 3:35 PM T [facility] ALBUMIN 3.4(L) 3.5 - 5.0 g/dL 12/30/2024 3:35 PM [facility] A/G RATIO 1.0 1.0 - 2.2 12/30/2024 3:35 PM CDT [facility] CALCIUM 8.5(L) 8.7 - 10.5 mg/dL 12/30/2024 3:35 PM CDT [facility] T BILI 0.2 0.2 - 1.2 mg/dL 12/30/2024 3:35 PM T [facility] SGOT (AST) 32 <43 U/L 12/30/2024 3:35 PM [facility] SGPT (ALT) 41 <56 U/L 12/30/2024 3:35 PM T [facility] [facility] ALKALINE PHOSPHATASE 169(H) 40 - 150 U/L 12/30/2024 3:35 PM T [facility] GFR, ESTIMATED >60 >=60 12/30/2024 3:35 PM [facility] Comment: Creatinine Clearance is the preferred criteria for selecting drug dose adjustments in renally impaired patients. The GFR is provided as additional pertinent clinical information. GFR is reported in mL/min/1.73 sq m. Calculation based on the 2020 Chronic Kidney Disease Epidemiology Collaboration (CKD-EPI) equation refit without adjustment for race. GFR, EST. >60 >=60 025 3:35 PM [facility] Comment: Creatinine Clearance is the preferred criteria for selecting drug dose adjustments in renally impaired patients. The GFR is provided as additional pertinent clinical information. GFR is reported in mL/min/1.73 sq m. Calculation based on the 2009 Chronic Kidney Disease Epidemiology Collaboration (CKD-EPI). GFR, EST. NONAFRICAN >60 >=60 12/30/2024 3:35 PM T [facility] Comment: Creatinine Clearance is the preferred criteria for selecting drug dose adjustments in renally impaired patients. The GFR is provided as additional pertinent clinical information. GFR is reported in mL/min/1.73 sq m. Calculation based on the 2009 Chronic Kidney Disease Epidemiology Collaboration (CKD-EPI). Blood Venipuncture / Unknown 12/30/2024 2:45 PM CDT 12/30/2024 3:00 PM CDT us Brittney Grey MD CHEMISTRY ORDERABLES Final Re sult Performing Organization Address [facility] de Phone Number [facility] [place] [address] * EKG 12 LEAD (12/30/2024 1:52 PM CDT) Only the most recent of2 resultswithin the time period is included. Ventricular Rate 91 BPM EXTERNAL EKG Atrial Rate 91 BPM EXTERNAL EKG P-R Interval 168 ms EXTERNAL EKG QRS Duration 92 ms EXTERNAL EKG Q-T Duration 376 ms EXTERNAL EKG QTC CALCULATION 462 ms EXTERNAL EKG P [place] 75 degrees EXTERNAL EKG R [place] 29 degrees EXTERNAL EKG T [place] 54 degrees EXTERNAL EKG 12/30/2024 1:52 PM CDT Impressions EXTERNAL EKG - 12/31/2024 11:11 AM CDT Normal sinus rhythm Normal ECG When compared with ECG of 15-DEC-2024 20:36, Criteria for Septal infarct are no longer present Confirmed by ALEXANDRA MCKEON ([id number]) on 12/31/2024 11:11:30 AM Narrative Procedure Note Alexandra Mckeon MD - 12/31/2024 IMPRESSION: Normal sinus rhythm Normal ECG When compared with ECG of 15-DEC-2024 20:36, Criteria for Septal infarct are no longer present Confirmed by ALEXANDRA MCKEON ([id number]) on 12/31/2024 11:11:30 AM us Brittney Grey MD IMG ECG ORDERABLES Final Resu lt Performing Organization Address [facility] Co de Phone Number EXTERNAL EKG * EKG SCAN (12/30/2024 12:00 AM CDT) Only the most recent of2 resultswithin the time period is included. 12/30/2024 us Provider Scan IMG ECG ORDERABLES Final Result RESULTING AGENCY * XR CHEST 2 VIEWS (12/26/2024 11:12 AM CDT) Anatomical Region Laterality Modality Chest N/A Digital Radiogra phy 12/26/2024 11:1 2 AM CDT Impressions 12/26/2024 3:53 PM CDT IMPRESSION: 1. No acute cardiopulmonary abnormality. Narrative 12/26/2024 3:53 PM CDT DICTATING PHYSICIAN: Simba Brooks M.D. EXAM: Chest Radiographs, 12/26/2024 11:12 AM HISTORY: 49-year-old male with chronic cough for 10 years worsening over the past 6 months. Current smoker. COMPARISON: 12/15/2024. FINDINGS: Upright PA and lateral view(s) of the chest are submitted in 2 total images. Cardiac silhouette and mediastinum: Normal size and contour. Pulmonary vessels and genny: Unremarkable. Lungs: No consolidation or focal nodular opacities. Pleura: No effusion or pneumothorax. Chest wall and Bones: Unremarkable. Abdomen: Visualized upper abdomen is unremarkable. Procedure Note Simba Brooks MD - 12/26/2024 DICTATING PHYSICIAN: Simba Brooks M.D. EXAM: Chest Radiographs, 12/26/2024 11:12 AM HISTORY: 49-year-old male with chronic cough for 10 years worsening overthe past 6 months. Current smoker. COMPARISON: 12/15/2024. FINDINGS: Upright PA and lateral view(s) of the chest are submitted in 2total images. Cardiac silhouette and mediastinum: Normal size and contour. Pulmonary vessels and genny: Unremarkable. Lungs: No consolidation or focal nodular opacities. Pleura: No effusion or pneumothorax. Chest wall and Bones: Unremarkable. Abdomen: Visualized upper abdomen is unremarkable. IMPRESSION: 1. No acute cardiopulmonary abnormality. Arun Guallpa APRN, CNP IMG DIAGNOSTIC O RDERABLES Final Result * UR MICROALBUMIN/CREATININE RATIO RANDOM (12/26/2024 10:42 AM CDT) RAN UR MICROALBUMIN <0.50 mg/dL 12/26/2024 12:56 PM CDT [facility] Comment:No reference range h as been established. Consider Clinical Correlation. CREATININE URINE 32.8 mg/dL 12/27/19 12:56 PM CDT [facility] Comment:No reference range h as been established. Consider Clinical Correlation. ALB/CREAT RATIO 12:56 PM CDT [facility] Comment:Unable to calculate due to urine microalbumin concentration less than 0.5 mg/dL Urine Non-Phlebotomy Collection / Unknown 12/26/2024 10:42 AM CDT 12/26/2024 12:10 PM CDT Arun Guallpa APRN, CNP URINE ORDERABLES Final Result [facility] [address] [place] [address] * (ABNORMAL) POCT GLYCOSYLATED HEMOGLOBIN (12/25/2024 8:51 AM CDT) Pathologist [facility] HGB-A1C 9.1(A) 4 - 6 % Blood 12/25/2024 8:51 AM CDT Arun Guallpa APRN, CNP POINT OF CARE TE STING (MANUAL) Final Result * Gold Top Tube (12/15/2024 9:17 PM CDT) Blood No Phlebotomy Charged / Unknown 12/15/2024 9:17 PM CDT 12/15/2024 9:26 PM CDT Clemente Ocasio MD CHEMISTRY ORDERABLES Steph l Result [facility] [address] [place] [address] * Blue Top Tube (12/15/2024 9:17 PM CDT) Blood No Phlebotomy Charged / Unknown 12/15/2024 9:17 PM CDT 12/15/2024 9:26 PM CDT Result [facility] Clemente Ocasio MD HEMATOLOGY ORDERABLES Fin al Result Performing Organization Address City/[facility]/ZIP Co de Phone Number [facility] [address] [place] [address] * Ear Cerumen Removal (12/15/2024 9:03 PM CDT) Narrative Clemente Ocasio MD - 12/15/2024 9:03 PM CDT Clemente Ocasio MD 12/16/2024 4:34 AM Ear Cerumen Removal Performed by: Clemente Ocasio MD Authorized by: Clemente Ocasio MD Consent: Consent obtained: Verbal Consent given by: Patient Risks discussed: Bleeding, dizziness and incomplete removal [place] protocol: Required blood products, implants, devices, and special equipment available: yes Patient identity confirmed: Verbally with patient Procedure details: Location: L ear Procedure type: irrigation Successful cerumen removal: Cotton irrigated. Post-procedure details: Inspection: Ear canal clear, no bleeding and TM intact Hearing quality: Improved Procedure completion: Tolerated well, no immediate complications Result [facility] Clemente Ocasio MD PROCEDURE/MINOR SURGICAL ORDERABLES Final Result * CT RENAL STONE STUDY (ABDOMEN AND PELVIS W/O CONTRAST) (12/08/2024 8:25 PM CDT) Anatomical Region Laterality Modality Abdomen N/A Computed Tomogra phy 12/08/2024 8:42 PM CDT Impressions 12/08/2024 8:45 PM CDT IMPRESSION: 1. There is a 2.2 cm cystic appearing mass in the right scrotum above the right testicle. This might represent epididymal head cyst. Please note that the testicles are not well evaluated by CT. Ultrasound would be preferred particularly for evaluation of the possible torsion or testicular mass. Scrotal ultrasound is recommended. 2. Cholelithiasis. 3. Possible cirrhosis of the liver. Narrative 12/08/2024 8:45 PM CDT EXAM DESCRIPTION: CT RENAL STONE STUDY (ABDOMEN AND PELVIS W/O CONTRAST) REASON FOR STUDY: c/o left testicle pain that started about 2 hours ago. pt denies urinary symptoms. no hx of surgery. Patient denies flank pain. TECHNIQUE: CT scan of the abdomen and pelvis performed without intravenous and without oral contrast using helical scanning technique. Reconstructed coronal and sagittal MPR images reviewed. All images stored on PACS. Automated exposure control was used as a dose optimization technique for this examination. COMPARISON: 06/21/2019 FINDINGS: The sensitivity for detection of visceral lesions is diminished without the use of intravenous contrast. LOWER CHEST: No significant pulmonary abnormalities. No effusion. LIVER: The liver surface appears slightly nodular which may suggest cirrhosis. This is similar to previous. No focal liver lesions are seen GALLBLADDER: Small gallstones are seen dependently in the gallbladder. Gallbladder otherwise appears unremarkable. BILE DUCTS: No intrahepatic or extrahepatic ductal dilatation. SPLEEN: Normal size. No focal lesions. PANCREAS: No identified cystic or solid masses. No significant calcifications. No adjacent inflammation or peripancreatic fluid collections. Pancreatic duct not dilated. ADRENALS: Normal. KIDNEYS/URINARY TRACT: No identified significant cystic or solid masses. No stones. No hydronephrosis or hydroureter. The bladder is largely decompressed. GI: No dilated bowel loops. No obvious wall thickening. The appendix is not clearly identified. No significant diverticular disease. PERITONEUM: No ascites or free air. RETROPERITONEUM: No mass or adenopathy. REPRODUCTIVE: There is a 2.2 cm cystic appearing mass in the right scrotum above the right testicle. This might represent epididymal head cyst. Please note that the testicles are not well evaluated by CT. Ultrasound would be preferred particularly for evaluation of the possible torsion or testicular mass. Scrotal ultrasound is recommended. VASCULATURE: No abdominal aortic aneurysm. MUSCULOSKELETAL: Degenerative changes are seen of the lumbar spine. OTHER: No other abnormality. THIS IS AN ELECTRONICALLY VERIFIED FINAL REPORT 12/08/2024 8:42 PM - Electronically signed by Rene BlumD. KH: MARIBELL Report ID: [id number] Reading Location: [id number] Procedure Note Rnee Arguelles MD - 12/08/2024 EXAM DESCRIPTION: CT RENAL STONE STUDY (ABDOMEN AND PELVIS W/O CONTRAST) REASON FOR STUDY: c/o left testicle pain that started about 2 hours ago. pt denies urinary symptoms. no hx of surgery. Patient denies flank pain. TECHNIQUE: CT scan of the abdomen and pelvis performed without intravenous and without oral contrast using helical scanning technique. Reconstructed coronal and sagittal MPR images reviewed. All images stored on PACS. Automated exposure control was used as a dose optimization technique for this examination. COMPARISON: 06/21/2019 FINDINGS: The sensitivity for detection of visceral lesions is diminished without the use of intravenous contrast. LOWER CHEST: No significant pulmonary abnormalities. No effusion. LIVER: The liver surface appears slightly nodular which may suggest cirrhosis. This is similar to previous. No focal liver lesions are seen GALLBLADDER: Small gallstones are seen dependently in the gallbladder. Gallbladder otherwise appears unremarkable. BILE DUCTS: No intrahepatic or extrahepatic ductal dilatation. SPLEEN: Normal size. No focal lesions. PANCREAS: No identified cystic or solid masses. No significant calcifications. No adjacent inflammation or peripancreatic fluid collections. Pancreatic duct not dilated. ADRENALS: Normal. KIDNEYS/URINARY TRACT: No identified significant cystic or solid masses. No stones. No hydronephrosis or hydroureter. The bladder is largely decompressed. GI: No dilated bowel loops. No obvious wall thickening. The appendix is not clearly identified. No significant diverticular disease. PERITONEUM: No ascites or free air. RETROPERITONEUM: No mass or adenopathy. REPRODUCTIVE: There is a 2.2 cm cystic appearing mass in the right scrotum above the right testicle. This might represent epididymal head cyst. Please note that the testicles are not well evaluated by CT. Ultrasound would be preferred particularly for evaluation of the possible torsion or testicular mass. Scrotal ultrasound is recommended. VASCULATURE: No abdominal aortic aneurysm. MUSCULOSKELETAL: Degenerative changes are seen of the lumbar spine. OTHER: No other abnormality. THIS IS AN ELECTRONICALLY VERIFIED FINAL REPORT 12/08/2024 8:42 PM - Electronically signed by Rene Arguelles M.D. KH: MARIBELL Report ID: [id number] Reading Location: [id number] IMPRESSION: 1. There is a 2.2 cm cystic appearing mass in the right scrotum above the right testicle. This might represent epididymal head cyst. Please note that the testicles are not well evaluated by CT. Ultrasound would be preferred particularly for evaluation of the possible torsion or testicular mass. Scrotal ultrasound is recommended. 2. Cholelithiasis. 3. Possible cirrhosis of the liver. us Clemente Ocasio MD IMG CT ORDERABLES Final R esult * (ABNORMAL) URINALYSIS REFLEX IF INDICATED BY ABNORMAL RESULTS (12/08/2024 8:13 PM CDT) SPECIFIC GRAVITY 1.015 1.003 - 1.030 12/08/2024 8:27 PM CDT [facility] URINE PH 6.0 5.0 - 9.0 12/08/2024 8:27 PM CDT [facility] WBC ESTERASE Negative Negative 12/08/2024 8:27 PM CDT [facility] NITRITE Negative Negative 12/08/2024 8:27 PM CDT [facility] PROTEIN, RANDOM URINE 15 mg/dL(A) Negative 12/08/2024 8:27 PM CDT [facility] URINE GLUCOSE, QUAL 250 mg/dL(A) Negative 12/08/2024 8:27 PM CDT [facility] URINE KETONES Negative Negative 12/08/2024 8:27 PM CDT [facility] UROBILINOGEN Normal Normal mg/dL 12/08/2024 8:27 PM CDT [facility] URINE BLOOD Negative Negative iman/ul 12/08/2024 8:27 PM CDT [facility] URINALYSIS COLOR Dark Yellow 025 8:27 PM CDT [facility] URINALYSIS CLARITY Clear 12/08/2024 8:27 PM CDT [facility] Urine URINE SPECIMEN OBTAINED BY CLEAN CATCH PROCEDURE / Unknown Non-Phlebotomy Collection / Unknown 12/08/2024 8:13 PM CDT 12/08/2024 8:21 PM CDT Clemente Ocasio MD URINE ORDERABLES Final Re sult Performing Organization Address City/[facility]/ZIP Co de Phone Number [facility] [address] [place] [address] * (ABNORMAL) Lipase (12/08/2024 8:05 PM CDT) LIPASE 7(L) 8 - 78 U/L 12/08/2024 8:33 PM CDT [facility] Blood Venipuncture / Unknown 12/08/2024 8:05 PM CDT 12/08/2024 8:13 PM CDT Clemente Ocasio MD CHEMISTRY ORDERABLES Steph l Result Performing Organization Address City/[facility] Co de Phone Number [facility] [address] [place] [address] * HEPATITIS C ANTIBODY (12/12/2023 1:40 PM CDT) hepatitis C antibody 0.11 <1 S/CO 12/12/2023 11:14 PM CDT [facility] Comment: Signal/Cutoff ratio < 0.79 is Nondetected Signal/Cutoff ratio 0.80-0.99 is Grayzone Signal/Cutoff ratio > 0.99 is Detected Supplemental assays are recommended if signal/cutoff ratio is >/=1.00. Signal/cutoff ratio result >/= 5.00 is 97% predictive of positivity for recombinant immunoblot assay (RIBA) and will be reported to the [place] Department of Public [facility] as required. Blood Venipuncture / Unknown 12/12/2023 1:40 PM CDT 12/12/2023 1:44 PM CDT us Arun Guallpa ALLOCATION ANALYST, AUTO WASH BUFFER CHEMISTRY ORDERA BLES Final Result [facility] [address] [place] [address], [place] from Last 3 Months or Most Recently Relevant to Health Maintenance Insurance MEDICAID [place] [facility] Advance Directives * Full Code (Latest Code Status on File) Date Activated Date Inactivated Comments 06/29/2018 7:23 PM 07/01/2018 3:18 PM CPR-Full Dagoberto atment: FULL ARREST: Attempt Resuscitation/CPR wit intubation and mechanical ventilation. PRE-ARREST: Use entire range of life support measures to stabilize the patient. Care Teams Student Life Advisor Relationship Specialty Start Date End Date Arun Guallpa APRN, AUTO WASH BUFFER [address] [place] [id number] PCP - General Advanced Practice Nurse 12/11/23
--- OUTSIDE RECORDS SUMMARY | 2025-02-10 14:15 | XMS_ITS | Clinical Summary ---
Author Organization [facility] Address [address] [place] [address] Care Team Providers Care Prefitter Doors Name Role Phone Mandy Lucas MD Primary Care Provider [phone] Allergies No known active allergies Medications metFORMIN [...] pulmonary disease) Emphysema lung Hypertension Diabetes mellitus Asthma Social History Tobacco Use Types Packs/Day [...] on file Legal Sex Male 12:54 AM [employer] WORK[employer] Gender Identity Not on file Sexual Orientation [...] - Td or Tdap) 07/31/2026 07/31/2016 Insurance [employer] Advance Directives For more information, please contact: [phone] * Full Code (Latest Code Status on File) Date Activated Date Inactivated Comments 10/24/2019 3:12 AM 10/26/2019 7:37 PM Care Teams Prefitter Doors Relationship Specialty Start Date End Date Mandy Lucas MD PCP - General Family Medicine 08/01/23
== END 2025-02-10 13:13 | disposition home or self-care (01) ==
DX: H60.312 Diffuse otitis externa, left ear (principal); H65.192 Other acute nonsuppurative otitis media, left ear; F17.210 Nicotine dependence, cigarettes, uncomplicated; F12.90 Cannabis use, unspecified, uncomplicated; I10 Essential (primary) hypertension; E11.9 Type 2 diabetes mellitus without complications; Z79.4 Long term (current) use of insulin; Z79.84 Long term (current) use of oral hypoglycemic drugs; J44.9 Chronic obstructive pulmonary disease, unspecified; E78.5 Hyperlipidemia, unspecified; I25.2 Old myocardial infarction
CPT/HCPCS: 99213; G0463